=== PATIENT | female | born 1970 | race Caucasian/White ===

== ENCOUNTER → 2021-03-21 15:20 | Outpatient (CLI) | payer BC, SELFPAY ==
--- NOTE | ~2021-03-21 | MM_ITS ---
EXAMINATION: MM screening [facility] w joann HISTORY: Screening mammogram TECHNIQUE: Craniocaudal and mediolateral oblique 3-D tomosynthesis images were obtained and synthetic 2-D images were generated. CAD analysis was submitted and interpreted. COMPARISON: 02/16/2019, 02/14/2017 bilateral digital screening mammogram examinations BREAST PARENCHYMAL COMPOSITION: There are scattered areas of fibroglandular density. FINDINGS: Stable upper outer quadrant left intramammary lymph node. Circumscribed posterior upper out er quadrant approximately 4.6 mm opacity is likely a benign left axillary tail lymph node, also parti ally imaged on 08/12/2009. Bilateral occasional punctate benign-appearing microcalcifications. Normal There is no evidence of khalil spicious mass, calcification, or architectural distortion to suggest malignancy in either breast. The re has been no suspicious interval change. IMPRESSION: 1. No mammographic evidence of malignancy. 2. Recommend routine screening mammography in one year. BI-RADS Category 2: Benign finding(s). Reviewed, dictated and finalized at location A.
== END ==
PROVIDERS: Visit Provider Nurse Practitioner
DX: Z12.31 Encounter for screening mammogram for malignant neoplasm of breast (principal)
CPT/HCPCS: 77063; 77067

== ENCOUNTER → 2022-05-10 13:37 | Outpatient (CLI) | payer BC, SELFPAY ==
--- NOTE | ~2022-05-10 | MM_ITS ---
EXAMINATION: MM screening [facility] BI w joann HISTORY: Screening mammogram TECHNIQUE: Craniocaudal and mediolateral oblique 3-D tomosynthesis images were obtained and synthetic 2-D images were generated. CAD analysis was submitted and interpreted. COMPARISON: 03/21/2021, 02/16/2019, 02/14/2017 BREAST PARENCHYMAL COMPOSITION: There are scattered areas of fibroglandular density. FINDINGS: A chronic low density mass in the upper outer quadrant left breast is consistent with a richa ign finding. There is no suspicious mass, calcification, or architectural distortion to suggest malig hayder in either breast. There has been no suspicious interval change. IMPRESSION: 1. No mammographic evidence of malignancy. 2. Recommend routine screening mammography in one year. BI-RADS Category 2: Benign finding(s). Reviewed, dictated and finalized at location A.
== END ==
PROVIDERS: Visit Provider Nurse Practitioner
DX: Z12.31 Encounter for screening mammogram for malignant neoplasm of breast (principal)
CPT/HCPCS: 77063; 77067

== ENCOUNTER → 2023-04-12 10:13 | Outpatient (CLI) | payer BC, SELFPAY ==
--- NOTE | ~2023-04-12 | US_ITS ---
EXAMINATION: US transvaginal DATE: 04/12/2023 10:52 INDICATION: Other specified abnormal uterine and vaginal bleeding. TECHNIQUE: Multiple transvaginal sonographic images of the pelvis were obtained. COMPARISON: Ultrasound 06/29/2018 FINDINGS: The uterus measures 8.6 x 5.3 x 6.1 cm. There is no free fluid in the pelvis. The endometrial complex measures 3 mm in thickness. There is a 3.3 cm submucosal uterine fibroid. There is a 2.3 cm intramur al fibroid. The right ovary measures 2.3 x 1.4 x 2.0 cm. The left ovary is not visualized. IMPRESSION: 1. Uterine fibroids. 2. Intrauterine device not confidently visualized. The fibroids decrease sensitivity. Reviewed, dictated and finalized at location E. IMPRESSION: 1. Uterine fibroids. 2. Intrauterine device not confidently visualized. The fibroids decrease sensit ivity.
== END ==
PROVIDERS: PCP Nurse Practitioner; Visit Provider Obstetrics & Gynecology Gynecology
DX: N93.8 Other specified abnormal uterine and vaginal bleeding (principal); D25.9 Leiomyoma of uterus, unspecified
CPT/HCPCS: 76830

== ENCOUNTER → 2023-06-20 13:44 | Outpatient (CLI) | payer BC, SELFPAY ==
--- NOTE | ~2023-06-20 | MM_ITS ---
EXAMINATION: MM screening [facility] w joann HISTORY: Screening TECHNIQUE: Craniocaudal and mediolateral oblique 3-D tomosynthesis images were obtained and synthetic 2-D images were generated. CAD analysis was submitted and interpreted. COMPARISON: Comparison to multiple prior studies sequentially, with oldest reviewed study dated 02/11. BREAST PARENCHYMAL COMPOSITION: There are scattered areas of fibroglandular density. FINDINGS: There is no evidence of suspicious mass, calcification, or architectural distortion to sugg est malignancy in either breast. There has been no suspicious interval change. IMPRESSION: 1. No mammographic evidence of malignancy. 2. Recommend routine screening mammography in one year. BI-RADS Category 1: Negative Reviewed, dictated and finalized at location A.
== END ==
PROVIDERS: PCP Nurse Practitioner; Visit Provider Nurse Practitioner
DX: Z12.31 Encounter for screening mammogram for malignant neoplasm of breast (principal)
CPT/HCPCS: 77063; 77067

== ENCOUNTER 2024-09-02 12:18 | Outpatient (CLI) | payer BC, SELFPAY ==
--- NOTE | ~2024-09-02 | MM_ITS ---
EXAMINATION: MM screening [facility] w joann HISTORY: Screening TECHNIQUE: Craniocaudal and mediolateral oblique 3-D tomosynthesis images were obtained and synthetic 2-D images were generated. CAD analysis was submitted and interpreted. COMPARISON: Comparison to multiple prior studies sequentially, with oldest reviewed study dated 02/14. BREAST PARENCHYMAL COMPOSITION: Not dense: There are scattered areas of fibroglandular density. FINDINGS: There is no evidence of suspicious mass, calcification, or architectural distortion to sugg est malignancy in either breast. There has been no suspicious interval change. IMPRESSION: 1. No mammographic evidence of malignancy. 2. Recommend routine screening mammography in one year. BI-RADS Category 1: Negative Reviewed, dictated and finalized at location B. [employer]
== END 2024-09-02 12:19 | disposition home or self-care (01) ==
PROVIDERS: Visit Provider Nurse Practitioner
DX: Z12.31 Encounter for screening mammogram for malignant neoplasm of breast (principal)
CPT/HCPCS: 77063; 77067

== ENCOUNTER 2025-03-11 07:23 | Outpatient (CLI) | payer BC, SELFPAY ==
--- NOTE | ~2025-03-11 | DEXA_ITS ---
Bone Density Report Name: LUCIANA LEAL Age: 54 Sex: Female Ethnicity: White Date of : 1970 Indication: postmenopausal; screening for osteoporosis; Referring Provider: FREDDIE, ELIAS Study: Bone densitometry was performed. Exam Date: March 11, 2025 Accession number: [id number] Bone Density: Region BMD T-score Z-score Classification AP Spine(L1-L4) 1.224 1.6 2.8 Normal Femoral Neck (Left) 0.837 -0.1 1.0 Normal Total Hip (Left) 1.114 1.4 2.2 Normal Femoral Neck (Right) 0.880 0.3 1.4 Normal Total Hip (Right) 1.109 1.4 2.1 Normal Total Hip Mean 1.111 1.4 2.2 Normal World Health Organization criteria for BMD impression classify patients as: Normal (T-score at or above -1.0), Osteopenia (T-score between -1.0 and -2.5), or Osteoporosis (T-score at or below -2.5). 10-year Fracture Risk: FRAX not reported because: All T-scores for Spine Total, Hip Total, Femoral Neck at or above -1.0 Clinical Information Provided by Patient: Has used the following medications: HRT (i.e. estrogen/hormone therapy), Vitamin D, Calcium Patient maximum height was 60 No regular weight bearing exercise Drinks caffeinated beverages Onset of menses at age 11 Number of children 2 Impression: The patient has normal bone mass. Discussion: BONE DENSITY IS ABOVE THE MINIMUM DESIRABLE LEVEL AT ALL SKELETAL SITES TESTED. This patient?s bone mineral density is above the minimum desirable level (T-score -1.0 or better) at all sites measured. The patient should follow a healthful lifestyle (good nutrition with adequate calcium and vitamin D, and appropriate weight-bearing exercise). Follow-Up: Consider repeating this study in 5 years or sooner if there is some new clinical indication. Reported by: DEYSI on 03/11/2025 7:57:00 AM. Reviewed, dictated and finalized at location A.
--- OUTSIDE RECORDS SUMMARY | 2025-03-11 07:26 | XMS_ITS | Encounter Summary ---
Author Organization [facility] Healthcare Address [address] [place] [address] Care Team Providers Care Host/Hostess Name Role Phone Fiona Hodges MD Unavailable Collins Guardado MD Unavailable [phone] Rima Wiggins NP Primary Care Provider [phone] Encounter Details Date Type Department Care Team (Late st Contact Info) Description 01/14/2025 Results Follow-Up [facility] Primary Care at [address] [place] [address] Rima Wiggins NP [address] [place] [address] [address] [place] [address] CBC with auto differential, Comprehensive metabolic panel, Thyroid Function [place], Additional followed-up results: 2 Social History Tobacco Use Types Packs/Day Years Used Date Smoking Tobacco: Never Cigarettes Passive Smoke Exposure: Never Smokeless Tobacco: Never Alcohol Use Standard Drinks/Week Comments Not Currently 0 (1 standard drink = 0.6 oz pur e alcohol) AUDIT-C Answer Date Recorded Q1: How often do you have a drink containing alc ohol? 2-4 times a month 09/13/2024 Q2: How many drinks containi ng alcohol do you have on a typical day when you are drinking? 1 or 2 09/13/2024 Q3: How often do you have si x or more drinks on one occasion? 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 Gender Identity Female 12/27/2019 3:58 PM CDT Sexual Orientation Not on file documented as of this encounter Plan of Treatment Not on file documented as of this encounter Procedures Procedure Name Priority Date/Time Associated Diagnosis Comments BASIC METABOLIC PANEL Routine 01/31/2025 9:01 AM CDT Hypokalemia documented in this encounter Results * (ABNORMAL) Basic metabolic panel (01/31/2025 9:01 AM CDT) Glucose 100(H) 65 - 99 mg/dL [facility] Comment: Fasting reference interval For someone without known diabetes, a glucose value between 100 and 125 mg/dL is consistent with prediabetes and should be confirmed with a follow-up test. BUN 12 7 - 25 mg/dL [facility] Creatinine 1.05(H) 0.50 - 1.03 mg/dL [facility] eGFR 62 > OR = 60 mL/min/1.7 3m2 [facility] BUN/creat ratio 11 6 - 22 (calc) [facility] Sodium 139 135 - 146 mmol/L [facility] Potassium, pl 3.4(L) 3.5 - 5.3 mmol/L [facility] Chloride 99 98 - 110 mmol/L [facility] CO2 34(H) 20 - 32 mmol/L [facility] Calcium 9.6 8.6 - 10.4 mg/dL [facility] Blood 01/31/2025 9:01 AM CDT 01/31/2025 9:02 AM CDT Rima Wiggins NP LAB BLOOD ORDERABLES Final R esult [facility] [address] [id number] documented in this encounter Visit Diagnoses Diagnosis Hypokalemia- Primary Hypopotassemia documented in this encounter Care Teams Host/Hostess Relationship Specialty Start Date End Date Rima Wiggins NP [address] [place] [address] PCP - General Family Medicine 09/25/22 Fiona Hodges MD [address] [place], [place] [id number] Referring Physician Gynecology 12/14/19 Collins Guardado MD [address] [place], [place] [id number] Consulting Physician Gastroenterology 12/30/19 documented as of this encounter
--- OUTSIDE RECORDS SUMMARY | 2025-03-11 07:26 | XMS_ITS | Referral Summary ---
Author Organization [facility] Address [address] [place] [address] Care Team Providers Care Cellophaner Name Role Phone Fiona Hodges MD Unavailable [phone] Collins Guardado MD Unavailable [phone] Rima Wiggins NP Primary Care Provider [phone] Encounters Date Type Department Care Team Description 02/04/2025 1:00 PM CDT Office Visit [facility] Primary Care at [address] [phone] Rima Wiggins NP Class 1 obesity with serious comorbidity and body mass index (BMI) of 34.0 to 34.9 in adult, unspecified obesity type (Primary Dx); Hypokalemia; Elevated serum creatinine 01/14/2025 Results Follow-Up [facility] at [address] [phone] Rima Wiggins NP CBC with auto differential, Comprehensive metabolic panel, Thyroid Function [place], Additional followed-up results: 2 01/10/2025 Orders Only [facility] Primary Care at [address] [phone] Rima Wiggins NP Mixed hyperlipidemia (Primary Dx); Class 2 severe obesity with serious comorbidity and body mass index (BMI) of 36.0 to 36.9 in adult, unspecified obesity type (HCC); Prediabetes; Dizziness; Generalized anxiety disorder; Moderate episode of recurrent major depressive disorder (HCC); Screening for thyroid disorder 01/05/2025 Orders Only [facility] Primary Care at [address] [place] [phone] Rima Wiggins NP Class 2 severe obesity with serious comorbidity and body mass index (BMI) of 36.0 to 36.9 in adult, unspecified obesity type (HCC); Prediabetes 01/03/2025 Telephone [facility] at [address] [phone] Rima Wiggins NP Medical Question/Miscellaneous 12/13/2024 Orders Only [facility] at [address] [phone] Rima Wiggins NP Gastroesophageal reflux disease without esophagitis (Primary Dx) from Last 3 Months Allergies No known active allergies Medications fluticasone propionate (FLONASE) 50 mcg/actuation nasal spray Administer 2 sprays into each nostril daily 16 g 5 12/28/19 20 Active cholecalciferol (VITAMIN D-3) 2000 unit capsule 1 capsule (2,000 Units total) Active ascorbic acid (VITAMIN C) 1,000 mg tablet Take 1 tablet (1,000 mg total) by mouth daily Active levonorgestreL (MIRENA) IUD 1 each by intrauterine route once Active oxybutynin XL (DITROPAN-XL) 10 mg 24 hr tablet 12/09/19 22 Active Flowflex COVID-19 Ag Home Test kit 09/02/20 22 Active meclizine (ANTIVERT) 12.5 mg tabletIndications: Vertigo Take 1 tablet (12.5 mg total) by mouth 3 (three) times a day as needed for dizziness 30 tablet 04/05/20 24 Active traZODone (DESYREL) 50 mg tabletIndications: Moderate episode of recurrent major depressive disorder (HCC),Primary insomnia TAKE ONE-HALF (1/2) TO ONE TABLET AT BEDTIME NEEDED FOR INSOMNIA 90 tablet 3 05/17/20 24 Active cyclobenzaprine (FLEXERIL) 5 mg tabletIndications: Chronic bilateral low back pain with bilateral sciatica Take 1 tablet (5 mg total) by mouth 2 (two) times a day as needed for muscle spasms 60 tablet 06/25/20 24 Active desvenlafaxine ER (PRISTIQ) 100 mg 24 hr tabletIndications: Moderate episode of recurrent major depressive disorder (HCC) TAKE 1 TABLET DAILY 90 tablet 3 08/18/20 24 Active busPIRone (BUSPAR) 10 mg tabletIndications: Moderate episode of recurrent major depressive disorder (HCC) TAKE 1 TABLET THREE TIMES A DAY NEEDED FOR ANXIETY 180 tablet 3 10/01/19 25 Active rosuvastatin (CRESTOR) 40 mg tabletIndications: Mixed hyperlipidemia TAKE 1 TABLET DAILY 90 tablet 3 11/24/19 25 Active omeprazole (PriLOSEC) 40 mg capsuleIndications :Gastroesophageal reflux disease without esophagitis Take 1 capsule (40 mg total) by mouth daily 90 capsule 3 12/14/19 25 026 Active tirzepatide, weight loss, (Zepbound) 7.5 mg/0.5 mL pen injectorIndication s:Class 2 severe obesity with serious comorbidity and body mass index (BMI) of 36.0 to 36.9 in adult, unspecified obesity type (HCC),Prediabetes Inject 0.5 mL (7.5 mg total) under the skin every 7 days 6 mL 01/06/20 25 Active triamterene-hydroC HLOROthiazide 37.5-25 mg per tablet/capsuleIndi cations:Edema of all four extremities TAKE 1 CAPSULE DAILY 90 capsule 3 01/14/20 25 Active Active Problems Problem Noted Date Diagnosed Date Pulmonary hypertension 05/17/2024 Assessment & Plan (09/13/2024 2:48 PM SMOKE INSPECTOR): -chronic, stable -noted on echocardiogram from 05/03/2024 -Patient saw pulmonology, but they could not rule in or out pulmonary hypertension. Echocardiogram 05/03/2024: Normal left ventricular systolic function with no focal wall motion abnormalities. Normal left ventricular size. Normal left ventricular wall thickness. Normal left ventricular diastolic function. Ejection fraction is measured at 66 %. Trivial regurgitation of the mitral valve. Moderate pulmonary hypertension based on right ventricular systolic pressure. Estimated peak RVSP is 45-50 mmHg. Mild tricuspid regurgitation. Assessment & Plan (05/17/2024 2:18 PM CDT): -chronic, new -noted on echocardiogram from 05/03/2024 -discussed possible workup we can complete. Referral sent to pulmonology. Advised patient to let me know if she can not get in to pulmonology in the next few months, and we can order a chest CT scan and possibly a sleep study. -follow up in 4 months or sooner as needed Echocardiogram 05/03/2024: Normal left ventricular systolic function with no focal wall motion abnormalities. Normal left ventricular size. Normal left ventricular wall thickness. Normal left ventricular diastolic function. Ejection fraction is measured at 66 %. Trivial regurgitation of the mitral valve. Moderate pulmonary hypertension based on right ventricular systolic pressure. Estimated peak RVSP is 45-50 mmHg. Mild tricuspid regurgitation. Dizziness 04/13/2024 Assessment & Plan (09/13/2024 2:47 PM SMOKE INSPECTOR): -chronic, stable -possibly related to pulmonary hypertension -continue on meclizine 12.5 mg 3 times daily as needed for dizziness -advised patient to go to ED if dizziness worsens/does not improve or if she experiences chest pain, shortness of breath, difficulty speaking, facial drooping, or extremity weakness Assessment & Plan (05/17/2024 2:19 PM CDT): -chronic, improving -possibly related to pulmonary hypertension -continue on meclizine 12.5 mg 3 times daily as needed for dizziness -orthostatic blood pressures- negative for orthostatic hypotension -EKG- normal sinus rhythm -echocardiogram on 05/03/2024 showed moderate pulmonary hypertension -event monitor on 05/03/2024 showed rare PACs and PVCs, but was otherwise normal. -discussed with the patient potential workup we can do for the pulmonary hypertension. Referral sent to pulmonology. Advised patient to let me know if she can not get in to pulmonology in the next few months, and we can order a chest CT scan and possibly a sleep study. -advised patient to go to ED if dizziness worsens/does not improve or if she experiences chest pain, shortness of breath, difficulty speaking, facial drooping, or extremity weakness -follow up in 4 months or sooner as needed Assessment & Plan (04/13/2024 12:03 PM CDT): -chronic, not at/near goal -Discussed/ordered labs -Start on meclizine 12.5 mg 3 times daily as needed for dizziness -orthostatic blood pressures completed in office today- negative for orthostatic hypotension -EKG completed in office today- normal sinus rhythm -echocardiogram ordered today -event monitor ordered today -discussed with patient that Cardiology and/or neurology referral may be needed if this does not improve -advised patient to go to ED if dizziness worsens/does not improve or if she experiences chest pain, shortness of breath, difficulty speaking, facial drooping, or extremity weakness -follow up in 1 month or sooner as needed Prediabetes 03/26/2024 Assessment & Plan (09/13/2024 2:46 PM SMOKE INSPECTOR): -chronic, stable -Discussed/ordered labs -recommend healthy, low carb diet and increase exercise -Patient's insurance will start to cover weight loss medications in September -Advised patient to message me in September and I will send in [email or web address] for her: Demo pen used to show pt how to use the medication. Discussed the importance of site rotation, stay 2 fingerbreadths away from belly button. Discussed the importance of cutting meals in half starting after first dose. Discussed that this will slow gastric emptying which will make pt feel full longer and fill up faster. Discussed the one bite or one gulp too much scenario that can increase nausea/vomiting. Listen to your body. Reiterated that pt does not have family or personal history of medullary thyroid cancer or pancreatitis. Assessment & Plan (05/17/2024 2:15 PM CDT): -chronic, stable -Discussed/ordered labs -recommend healthy, low carb diet and increase exercise Assessment & Plan (04/13/2024 11:58 AM CDT): -chronic, new -Discussed/ordered labs -recommend healthy, low carb diet and increase exercise Memory loss 10/03/2023 Assessment & Plan (04/13/2024 11:59 AM CDT): -stable -recommend patient do daily memory games and memory puzzles -patient declines neurology referral at this time Assessment & Plan (10/03/2023 3:05 PM SMOKE INSPECTOR): -not improving -mini cog completed office today. Repeat in 6 months -recommend patient do daily memory games and memory puzzles Class 1 obesity with serious comorbidity and body mass index (BMI) of 34.0 to 34.9 in adult 09/25/2022 Assessment & Plan (02/04/2025 2:05 PM CDT): -chronic, improving, but not at goal goal BMI <30 Healthy, high-protein, lower carbohydrate, lower fat lifestyle and exercise for 150min/week recommended Recommend tracking everything you put in your mouth on an kenney like [employer] -Continue on Zepbound 7.5 mg weekly -Follow up in 3 months or sooner as needed Hand Measurements: A fist or cupped hand = 1 cup 1 cup = 1 -2 servings of fruit juice 1 oz. of cold cereal 2 oz. of cooked cereal, rice or pasta 8 oz. of milk or yogurt A thumb = 1 oz. of cheese Consuming low-fat cheese helps you meet the required servings from the milk, yogurt and cheese group. 1 oz. of low-fat cheese counts as 8 oz. of milk or yogurt. Handful = 1-2 oz. of snack food Thumb tip = 1 teaspoon Keep high-fat foods, such as peanut butter and mayonnaise, at a minimum. One teaspoon is equal to the end of your thumb, from the knuckle up. Three teaspoons equals 1 tablespoon. Palm = 3 oz. of meat Choose lean poultry, fish, shellfish and beef. One palm size portion equals 3 oz. for an adult and 1 -2 oz. for a child under 5. 1 tennis ball or a fist= 1/2 cup of fruit and vegetables Healthy diets include a variety of colorful fruits and vegetables every day. The secret to serving size is in your hand. Snacking can add up. Because hand sizes vary, compare your fist size to an actual measuring cup. Assessment & Plan (09/13/2024 2:46 PM SMOKE INSPECTOR): -chronic, not at/near goal goal BMI <30 Healthy, high-protein, lower carbohydrate, lower fat lifestyle and exercise for 150min/week recommended Recommend tracking everything you put in your mouth on an kenney like [employer] -Patient's insurance will start to cover weight loss medications in September -Advised patient to message me in September and I will send in [email or web address] for her: Demo pen used to show pt how to use the medication. Discussed the importance of site rotation, stay 2 fingerbreadths away from belly button. Discussed the importance of cutting meals in half starting after first dose. Discussed that this will slow gastric emptying which will make pt feel full longer and fill up faster. Discussed the one bite or one gulp too much scenario that can increase nausea/vomiting. Listen to your body. Reiterated that pt does not have family or personal history of medullary thyroid cancer or pancreatitis. Hand Measurements: A fist or cupped hand = 1 cup 1 cup = 1 -2 servings of fruit juice 1 oz. of cold cereal 2 oz. of cooked cereal, rice or pasta 8 oz. of milk or yogurt A thumb = 1 oz. of cheese Consuming low-fat cheese helps you meet the required servings from the milk, yogurt and cheese group. 1 oz. of low-fat cheese counts as 8 oz. of milk or yogurt. Handful = 1-2 oz. of snack food Thumb tip = 1 teaspoon Keep high-fat foods, such as peanut butter and mayonnaise, at a minimum. One teaspoon is equal to the end of your thumb, from the knuckle up. Three teaspoons equals 1 tablespoon. Palm = 3 oz. of meat Choose lean poultry, fish, shellfish and beef. One palm size portion equals 3 oz. for an adult and 1 -2 oz. for a child under 5. 1 tennis ball or a fist= 1/2 cup of fruit and vegetables Healthy diets include a variety of colorful fruits and vegetables every day. The secret to serving size is in your hand. Snacking can add up. Because hand sizes vary, compare your fist size to an actual measuring cup. Assessment & Plan (05/17/2024 2:15 PM CDT): -chronic, not at/near goal goal BMI <30 Healthy, high-protein, lower carbohydrate, lower fat lifestyle and exercise for 150min/week recommended Recommend tracking everything you put in your mouth on an kenney like [employer] Hand Measurements: A fist or cupped hand = 1 cup 1 cup = 1 -2 servings of fruit juice 1 oz. of cold cereal 2 oz. of cooked cereal, rice or pasta 8 oz. of milk or yogurt A thumb = 1 oz. of cheese Consuming low-fat cheese helps you meet the required servings from the milk, yogurt and cheese group. 1 oz. of low-fat cheese counts as 8 oz. of milk or yogurt. Handful = 1-2 oz. of snack food Thumb tip = 1 teaspoon Keep high-fat foods, such as peanut butter and mayonnaise, at a minimum. One teaspoon is equal to the end of your thumb, from the knuckle up. Three teaspoons equals 1 tablespoon. Palm = 3 oz. of meat Choose lean poultry, fish, shellfish and beef. One palm size portion equals 3 oz. for an adult and 1 -2 oz. for a child under 5. 1 tennis ball or a fist= 1/2 cup of fruit and vegetables Healthy diets include a variety of colorful fruits and vegetables every day. The secret to serving size is in your hand. Snacking can add up. Because hand sizes vary, compare your fist size to an actual measuring cup. Assessment & Plan (04/13/2024 12:00 PM CDT): -chronic, not at/near goal goal BMI <30 Healthy, high-protein, lower carbohydrate, lower fat lifestyle and exercise for 150min/week recommended Recommend tracking everything you put in your mouth on an kenney like [employer] Hand Measurements: A fist or cupped hand = 1 cup 1 cup = 1 -2 servings of fruit juice 1 oz. of cold cereal 2 oz. of cooked cereal, rice or pasta 8 oz. of milk or yogurt A thumb = 1 oz. of cheese Consuming low-fat cheese helps you meet the required servings from the milk, yogurt and cheese group. 1 oz. of low-fat cheese counts as 8 oz. of milk or yogurt. Handful = 1-2 oz. of snack food Thumb tip = 1 teaspoon Keep high-fat foods, such as peanut butter and mayonnaise, at a minimum. One teaspoon is equal to the end of your thumb, from the knuckle up. Three teaspoons equals 1 tablespoon. Palm = 3 oz. of meat Choose lean poultry, fish, shellfish and beef. One palm size portion equals 3 oz. for an adult and 1 -2 oz. for a child under 5. 1 tennis ball or a fist= 1/2 cup of fruit and vegetables Healthy diets include a variety of colorful fruits and vegetables every day. The secret to serving size is in your hand. Snacking can add up. Because hand sizes vary, compare your fist size to an actual measuring cup. Assessment & Plan (10/03/2023 3:03 PM SMOKE INSPECTOR): HPI: Condition is not at/near goal goal BMI <30 A&P: Healthy, high-protein, lower carbohydrate, lower fat lifestyle and exercise for 150min/week recommended Recommend tracking everything you put in your mouth on an kenney like [employer] Hand Measurements: A fist or cupped hand = 1 cup 1 cup = 1 -2 servings of fruit juice 1 oz. of cold cereal 2 oz. of cooked cereal, rice or pasta 8 oz. of milk or yogurt A thumb = 1 oz. of cheese Consuming low-fat cheese helps you meet the required servings from the milk, yogurt and cheese group. 1 oz. of low-fat cheese counts as 8 oz. of milk or yogurt. Handful = 1-2 oz. of snack food Thumb tip = 1 teaspoon Keep high-fat foods, such as peanut butter and mayonnaise, at a minimum. One teaspoon is equal to the end of your thumb, from the knuckle up. Three teaspoons equals 1 tablespoon. Palm = 3 oz. of meat Choose lean poultry, fish, shellfish and beef. One palm size portion equals 3 oz. for an adult and 1 -2 oz. for a child under 5. 1 tennis ball or a fist= 1/2 cup of fruit and vegetables Healthy diets include a variety of colorful fruits and vegetables every day. The secret to serving size is in your hand. Snacking can add up. Because hand sizes vary, compare your fist size to an actual measuring cup. Assessment & Plan (03/27/2023 1:48 PM CDT): HPI: Condition is not at/near goal goal BMI <25 A&P: Healthy, high-protein, lower carbohydrate, lower fat lifestyle and exercise for 150min/week recommended Recommend tracking everything you put in your mouth on an kenney like [employer] -Advised patient to call her insurance company and see if they cover Wegovy, phentermine, or contrave. Advised patient she may also look into [facility] weight loss clinic for semaglutide injections. -Patient denies personal/family history of pancreatitis or medullary thyroid cancer Hand Measurements: A fist or cupped hand = 1 cup 1 cup = 1 -2 servings of fruit juice 1 oz. of cold cereal 2 oz. of cooked cereal, rice or pasta 8 oz. of milk or yogurt A thumb = 1 oz. of cheese Consuming low-fat cheese helps you meet the required servings from the milk, yogurt and cheese group. 1 oz. of low-fat cheese counts as 8 oz. of milk or yogurt. Handful = 1-2 oz. of snack food Thumb tip = 1 teaspoon Keep high-fat foods, such as peanut butter and mayonnaise, at a minimum. One teaspoon is equal to the end of your thumb, from the knuckle up. Three teaspoons equals 1 tablespoon. Palm = 3 oz. of meat Choose lean poultry, fish, shellfish and beef. One palm size portion equals 3 oz. for an adult and 1 -2 oz. for a child under 5. 1 tennis ball or a fist= 1/2 cup of fruit and vegetables Healthy diets include a variety of colorful fruits and vegetables every day. The secret to serving size is in your hand. Snacking can add up. Because hand sizes vary, compare your fist size to an actual measuring cup. Assessment & Plan (09/25/2022 3:15 PM SMOKE INSPECTOR): HPI: Condition is stable goal BMI <30 A&P: Healthy, high-protein, lower carbohydrate, lower fat lifestyle and exercise for 150min/week recommended Recommend tracking everything you put in your mouth on an kenney like [employer] Hand Measurements: A fist or cupped hand = 1 cup 1 cup = 1 -2 servings of fruit juice 1 oz. of cold cereal 2 oz. of cooked cereal, rice or pasta 8 oz. of milk or yogurt A thumb = 1 oz. of cheese Consuming low-fat cheese helps you meet the required servings from the milk, yogurt and cheese group. 1 oz. of low-fat cheese counts as 8 oz. of milk or yogurt. Handful = 1-2 oz. of snack food Thumb tip = 1 teaspoon Keep high-fat foods, such as peanut butter and mayonnaise, at a minimum. One teaspoon is equal to the end of your thumb, from the knuckle up. Three teaspoons equals 1 tablespoon. Palm = 3 oz. of meat Choose lean poultry, fish, shellfish and beef. One palm size portion equals 3 oz. for an adult and 1 -2 oz. for a child under 5. 1 tennis ball or a fist= 1/2 cup of fruit and vegetables Healthy diets include a variety of colorful fruits and vegetables every day. The secret to serving size is in your hand. Snacking can add up. Because hand sizes vary, compare your fist size to an actual measuring cup. Vitamin D deficiency 01/24/2021 Assessment & Plan (09/13/2024 2:45 PM SMOKE INSPECTOR): -chronic, stable -discussed/ordered lab work -continue on vitamin D3 2000 units daily Assessment & Plan (05/17/2024 2:15 PM CDT): -chronic, stable -discussed/ordered lab work -continue on vitamin D3 2000 units daily Assessment & Plan (04/13/2024 11:58 AM CDT): -chronic, stable -discussed/ordered lab work -continue on vitamin D3 2000 units daily Assessment & Plan (10/03/2023 3:04 PM SMOKE INSPECTOR): -chronic, stable -discussed/ordered lab work -continue on vitamin D3 2000 units daily Assessment & Plan (03/27/2023 1:48 PM CDT): -chronic, stable -continue on vitamin D3 2000 units daily -vitamin-D level ordered today Assessment & Plan (09/25/2022 7:33 AM SMOKE INSPECTOR): HPI: Condition is stable A&P: Discussed/ordered labs, encouraged healthy, low carbohydrate lifestyle and at least 150min/week of exercise, continue on vitamin D3 2000 units daily Assessment & Plan (02/05/2022 8:17 AM CDT): HPI: Condition is at goal A&P: Discussed/ordered labs, encouraged healthy, low carbohydrate lifestyle and at least 150min/week of exercise, continue on Vitamin D3 5753-1380 units daily Assessment & Plan (08/08/2021 1:47 PM SMOKE INSPECTOR): HPI: Condition is at goal A&P: Discussed/ordered labs, encouraged healthy, low carbohydrate lifestyle and at least 150min/week of exercise, continue on Vitamin-D3 7648-2207 units daily Assessment & Plan (01/24/2021 4:05 PM CDT): HPI: Condition is improving, but not at goal of 60-70 A&P: Discussed/ordered labs, encouraged healthy, low carbohydrate lifestyle and at least 150min/week of exercise, increase vit d3 to 9053-1922 units daily Moderate episode of recurrent major depressive d isorder 03/01/2020 Assessment & Plan (09/13/2024 2:45 PM SMOKE INSPECTOR): -chronic, not at goal -patient does not want to change her medications at this time -continue on desvenlafaxine ER 100 mg daily, buspirone 10 mg 3 times daily as needed, and trazodone 50 mg 1/2-1 tablet at bedtime as needed for insomnia -follow up if not improving Patient reiterated no suicidal thoughts at this time; take medication as directed; contact 911 and go to the ER if becomes suicidal; discussed side effects of medication with patient; encouraged healthy diet and exericise; encouraged patient to see a counselor Assessment & Plan (05/17/2024 2:15 PM CDT): -chronic, stable -continue on desvenlafaxine ER 100 mg daily, buspirone 10 mg 3 times daily as needed, and trazodone 50 mg 1/2-1 tablet at bedtime as needed for insomnia Patient reiterated no suicidal thoughts at this time; take medication as directed; contact 911 and go to the ER if becomes suicidal; discussed side effects of medication with patient; encouraged healthy diet and exericise; encouraged patient to see a counselor Assessment & Plan (04/13/2024 11:59 AM CDT): -chronic, stable -continue on desvenlafaxine ER 100 mg daily, buspirone 10 mg 3 times daily as needed, and trazodone 50 mg 1/2-1 tablet at bedtime as needed for insomnia Patient reiterated no suicidal thoughts at this time; take medication as directed; contact 911 and go to the ER if becomes suicidal; discussed side effects of medication with patient; encouraged healthy diet and exericise; encouraged patient to see a counselor Assessment & Plan (10/03/2023 3:04 PM SMOKE INSPECTOR): Patient reiterated no suicidal thoughts at this time; take medication as directed; contact 911 and go to the ER if becomes suicidal; discussed side effects of medication with patient; encouraged healthy diet and exericise; encouraged patient to see a counselor -chronic, stable -continue on desvenlafaxine ER 100 mg daily, buspirone 10 mg 3 times daily as needed, and trazodone 50 mg 1/2-1 tablet at bedtime as needed for insomnia Assessment & Plan (03/27/2023 1:48 PM CDT): Patient reiterated no suicidal thoughts at this time; take medication as directed; contact 911 and go to the ER if becomes suicidal; discussed side effects of medication with patient; encouraged healthy diet and exericise; encouraged patient to see a counselor -chronic, stable -continue on desvenlafaxine ER 100 mg daily, buspirone 10 mg 3 times daily as needed, and trazodone 50 mg 1/2-1 tablet at bedtime as needed for insomnia Assessment & Plan (09/25/2022 3:18 PM SMOKE INSPECTOR): Patient reiterated no suicidal thoughts at this time; take medication as directed; contact 911 and go to the ER if becomes suicidal; discussed side effects of medication with patient; encouraged healthy diet and exericise; encouraged patient to see a counselor HPI: Condition is improving A&P: Discussed/ordered labs, encouraged healthy, low carbohydrate lifestyle and at least 150min/week of exercise, continue on does venlafaxine ER 100 mg daily and buspirone 10 mg 3 times daily as needed and trazodone 50 mg 1/2-1 tablet at bedtime as needed for insomnia Assessment & Plan (06/25/2022 1:23 PM CDT): Patient reiterated no suicidal thoughts at this time; take medication as directed; contact 911 and go to the ER if becomes suicidal; discussed side effects of medication with patient; encouraged healthy diet and exericise; encouraged patient to see a counselor HPI: Condition is stable A&P: Discussed/ordered labs, encouraged healthy, low carbohydrate lifestyle and at least 150min/week of exercise, continue on does venlafaxine 100 mg daily, decrease melatonin from 10 mg nightly to 3mg nightly, at last office visit we trial patient on buspirone twice daily. She feels she is doing better on this dosing. We will add in trazodone 50mg 1/2-1 tablet at bedtime as needed for insomnia. Assessment & Plan (05/08/2022 1:38 PM CDT): Patient reiterated no suicidal thoughts at this time; take medication as directed; contact 911 and go to the ER if becomes suicidal; discussed side effects of medication with patient; encouraged healthy diet and exericise; encouraged patient to see a counselor HPI: Condition is not at/near goal A&P: Discussed/ordered labs, encouraged healthy, low carbohydrate lifestyle and at least 150min/week of exercise, pt on pristiq 100mg daily. Pt no longer using hydroxyzine. Also using melatonin 10mg nightly Stay on your pristiq 100mg daily Trial on buspirone 10mg twice daily. Take it in the am and with dinner. May remain on melatonin 10mg nightly Assessment & Plan (02/05/2022 3:38 PM CDT): Patient reiterated no suicidal thoughts at this time; take medication as directed; contact 911 and go to the ER if becomes suicidal; discussed side effects of medication with patient; encouraged healthy diet and exericise; encouraged patient to see a counselor HPI: Condition is stable A&P: Discussed/ordered labs, encouraged healthy, low carbohydrate lifestyle and at least 150min/week of exercise, continue on Pristiq 100 mg daily, melatonin 10 mg nightly No longer using hydroxyzine Assessment & Plan (08/08/2021 1:51 PM SMOKE INSPECTOR): Patient reiterated no suicidal thoughts at this time; take medication as directed; contact 911 and go to the ER if becomes suicidal; discussed side effects of medication with patient; encouraged healthy diet and exericise; encouraged patient to see a counselor HPI: Condition is stable A&P: Discussed/ordered labs, encouraged healthy, low carbohydrate lifestyle and at least 150min/week of exercise, continue on pristiq 100mg daily, hydroxyzine 10mg 1/2-1 tablet at bedtime only as needed-she cant remember the last time she needed it. She is taking melatonin 10mg nightly. Assessment & Plan (01/24/2021 4:19 PM CDT): Patient reiterated no suicidal thoughts at this time; take medication as directed; contact 911 and go to the ER if becomes suicidal; discussed side effects of medication with patient; encouraged healthy diet and exericise; encouraged patient to see a counselor HPI: Condition is stable A&P: Discussed/ordered labs, encouraged healthy, low carbohydrate lifestyle and at least 150min/week of exercise, continue on pristiq 100mg daily, hydroxyzine 10mg 1/2-1 tablet at bedtime only as needed-she can't remember the last time she took it. She is also taking melatonin 10mg nightly which is helping. At last office visit referred her to see Dr. Luna (sleep med) and she is having workup done by her. She was also refer for cognitive behavioral therapy. She did not get that done. She is doing well with sleeping and does not feel she needs f/u with Dr. Luna at this time. Assessment & Plan (10/24/2020 8:10 AM SMOKE INSPECTOR): Patient reiterated no suicidal thoughts at this time; take medication as directed; contact 911 and go to the ER if becomes suicidal; discussed side effects of medication with patient; encouraged healthy diet and exericise; encouraged patient to see a counselor HPI: Condition is improving, but not at goal , with covid and the recent presidency issues, that does not help. A&P: Discussed/ordered labs, encouraged healthy, low carbohydrate lifestyle and at least 150min/week of exercise, at last office visit we started her on Pristiq 50 mg daily as a controller medication. We also gave hydroxyzine 25 mg to use 1/2 to 1 tablet at bedtime to help her sleep We will increase the pristiq to 100mg daily. Pt stated she was feeling too tired the next day on days she tooke the hydroxyzine 25mg even at 1/2 tablet. We will decrease this to hydroxyzine 10mg 1/2-1tablet at bedtime. We will also refer to Dr. Luna (sleep med) Assessment & Plan (03/01/2020 3:33 PM CDT): Condition is worsening encouraged healthy, low carbohydrate lifestyle and at least 150min/week of exercise, at last visit we discontinued effexor due to side effects. She stated she Was shaking constantly and was unable to shut her brain off making it difficult to sleep at night. We started patient on lexapro 20mg daily and buspirone as needed for anxiety, rescue Was told to consider the buspirone as a rescue only medication. If needing it more than 2 x day, please contact office. At last visit she stopped both of them. She stopped it after 1 mo because she felt like a zombie. She was tired all the time and felt very dizzy. Before stopping she was only taking it at bedtime but she didn't feel that it helped. She stated she was sleeping better without it. She did not take the buspirone diurng the day for anxiety. She did take the lexapro daily. At first she was feeling better on no medication. Her anxiety levels have now increased along with depression She is also working from home at this time. Sleeping worse now than she previously was. Pt is not currently seeing a counselor. Patient reiterated no suicidal thoughts at this time; take medication as directed; contact 911 and go to the ER if becomes suicidal; discussed side effects of medication with patient; encouraged healthy diet and exericise; encouraged patient to see a counselor She states she is not doing ok on her own without medication. She has been on lexapro, venlafaxine in the past also. Trial on pristiq 50mg daily as a controller medication. We will also give hydroxyzine 25mg 1/2-1 tablet at bedtime to help sleep. Drink tons of water Generalized anxiety disorder 12/14/2019 Assessment & Plan (09/13/2024 2:45 PM SMOKE INSPECTOR): -chronic, not at goal -patient does not want to change her medications at this time -continue on desvenlafaxine ER 100 mg daily, buspirone 10 mg 3 times daily as needed, and trazodone 50 mg 1/2-1 tablet at bedtime as needed for insomnia -follow up if not improving Patient reiterated no suicidal thoughts at this time; take medication as directed; contact 911 and go to the ER if becomes suicidal; discussed side effects of medication with patient; encouraged healthy diet and exericise; encouraged patient to see a counselor Assessment & Plan (05/17/2024 2:15 PM CDT): -chronic, not at goal- patient's father is in the hospital -patient does not want to change her medications at this time -continue on desvenlafaxine ER 100 mg daily, buspirone 10 mg 3 times daily as needed, and trazodone 50 mg 1/2-1 tablet at bedtime as needed for insomnia -follow up in 4 months or sooner as needed Patient reiterated no suicidal thoughts at this time; take medication as directed; contact 911 and go to the ER if becomes suicidal; discussed side effects of medication with patient; encouraged healthy diet and exericise; encouraged patient to see a counselor Assessment & Plan (04/13/2024 12:00 PM CDT): -chronic, stable -continue on desvenlafaxine ER 100 mg daily, buspirone 10 mg 3 times daily as needed, and trazodone 50 mg 1/2-1 tablet at bedtime as needed for insomnia Patient reiterated no suicidal thoughts at this time; take medication as directed; contact 911 and go to the ER if becomes suicidal; discussed side effects of medication with patient; encouraged healthy diet and exericise; encouraged patient to see a counselor Assessment & Plan (10/03/2023 1:52 PM SMOKE INSPECTOR): Patient reiterated no suicidal thoughts at this time; take medication as directed; contact 911 and go to the ER if becomes suicidal; discussed side effects of medication with patient; encouraged healthy diet and exericise; encouraged patient to see a counselor -chronic, stable -continue on desvenlafaxine ER 100 mg daily, buspirone 10 mg 3 times daily as needed, and trazodone 50 mg 1/2-1 tablet at bedtime as needed for insomnia Assessment & Plan (03/26/2023 11:29 AM CDT): Patient reiterated no suicidal thoughts at this time; take medication as directed; contact 911 and go to the ER if becomes suicidal; discussed side effects of medication with patient; encouraged healthy diet and exericise; encouraged patient to see a counselor -chronic, stable -continue on desvenlafaxine ER 100 mg daily, buspirone 10 mg 3 times daily as needed, and trazodone 50 mg 1/2-1 tablet at bedtime as needed for insomnia Assessment & Plan (09/25/2022 3:29 PM SMOKE INSPECTOR): Patient reiterated no suicidal thoughts at this time; take medication as directed; contact 911 and go to the ER if becomes suicidal; discussed side effects of medication with patient; encouraged healthy diet and exericise; encouraged patient to see a counselor HPI: Condition is improving A&P: Discussed/ordered labs, encouraged healthy, low carbohydrate lifestyle and at least 150min/week of exercise, continue on does venlafaxine ER 100 mg daily and buspirone 10 mg 3 times daily as needed and trazodone 50 mg 1/2-1 tablet at bedtime as needed for insomnia Assessment & Plan (06/25/2022 1:26 PM CDT): Patient reiterated no suicidal thoughts at this time; take medication as directed; contact 911 and go to the ER if becomes suicidal; discussed side effects of medication with patient; encouraged healthy diet and exericise; encouraged patient to see a counselor HPI: Condition is stable A&P: Discussed/ordered labs, encouraged healthy, low carbohydrate lifestyle and at least 150min/week of exercise, continue on does venlafaxine 100 mg daily, decrease melatonin from 10 mg nightly to 3mg nightly, at last office visit we trial patient on buspirone twice daily. She feels she is doing better on this dosing. We will add in trazodone 50mg 1/2-1 tablet at bedtime as needed for insomnia. Assessment & Plan (05/08/2022 1:38 PM CDT): Patient reiterated no suicidal thoughts at this time; take medication as directed; contact 911 and go to the ER if becomes suicidal; discussed side effects of medication with patient; encouraged healthy diet and exericise; encouraged patient to see a counselor HPI: Condition is not at/near goal A&P: Discussed/ordered labs, encouraged healthy, low carbohydrate lifestyle and at least 150min/week of exercise, pt on pristiq 100mg daily. Pt no longer using hydroxyzine. Also using melatonin 10mg nightly Stay on your pristiq 100mg daily Trial on buspirone 10mg twice daily. Take it in the am and with dinner. May remain on melatonin 10mg nightly Assessment & Plan (02/05/2022 3:40 PM CDT): Patient reiterated no suicidal thoughts at this time; take medication as directed; contact 911 and go to the ER if becomes suicidal; discussed side effects of medication with patient; encouraged healthy diet and exericise; encouraged patient to see a counselor HPI: Condition is stable A&P: Discussed/ordered labs, encouraged healthy, low carbohydrate lifestyle and at least 150min/week of exercise, continue on Pristiq 100 mg daily, melatonin 10 mg nightly No longer using hydroxyzine Assessment & Plan (08/08/2021 1:54 PM SMOKE INSPECTOR): Patient reiterated no suicidal thoughts at this time; take medication as directed; contact 911 and go to the ER if becomes suicidal; discussed side effects of medication with patient; encouraged healthy diet and exericise; encouraged patient to see a counselor HPI: Condition is stable A&P: Discussed/ordered labs, encouraged healthy, low carbohydrate lifestyle and at least 150min/week of exercise, continue on pristiq 100mg daily, hydroxyzine 10mg 1/2-1 tablet at bedtime only as needed-she cant remember the last time she needed it. She is taking melatonin 10mg nightly. Assessment & Plan (01/24/2021 4:20 PM CDT): Patient reiterated no suicidal thoughts at this time; take medication as directed; contact 911 and go to the ER if becomes suicidal; discussed side effects of medication with patient; encouraged healthy diet and exericise; encouraged patient to see a counselor HPI: Condition is stable A&P: Discussed/ordered labs, encouraged healthy, low carbohydrate lifestyle and at least 150min/week of exercise, continue on pristiq 100mg daily, hydroxyzine 10mg 1/2-1 tablet at bedtime only as needed-she can't remember the last time she took it. She is also taking melatonin 10mg nightly which is helping. At last office visit referred her to see Dr. Luna (sleep med) and she is having workup done by her. She was also refer for cognitive behavioral therapy. She did not get that done. She is doing well with sleeping and does not feel she needs f/u with Dr. Luna at this time. Assessment & Plan (10/24/2020 8:11 AM SMOKE INSPECTOR): Patient reiterated no suicidal thoughts at this time; take medication as directed; contact 911 and go to the ER if becomes suicidal; discussed side effects of medication with patient; encouraged healthy diet and exericise; encouraged patient to see a counselor HPI: Condition is improving, but not at goal , with covid and the recent presidency issues, that does not help. A&P: Discussed/ordered labs, encouraged healthy, low carbohydrate lifestyle and at least 150min/week of exercise, at last office visit we started her on Pristiq 50 mg daily as a controller medication. We also gave hydroxyzine 25 mg to use 1/2 to 1 tablet at bedtime to help her sleep We will increase the pristiq to 100mg daily. Pt stated she was feeling too tired the next day on days she tooke the hydroxyzine 25mg even at 1/2 tablet. We will decrease this to hydroxyzine 10mg 1/2-1tablet at bedtime. We will also refer to Dr. Luna (sleep med) Assessment & Plan (03/01/2020 3:33 PM CDT): Condition is worsening encouraged healthy, low carbohydrate lifestyle and at least 150min/week of exercise, at last visit we discontinued effexor due to side effects. She stated she Was shaking constantly and was unable to shut her brain off making it difficult to sleep at night. We started patient on lexapro 20mg daily and buspirone as needed for anxiety, rescue Was told to consider the buspirone as a rescue only medication. If needing it more than 2 x day, please contact office. At last visit she stopped both of them. She stopped it after 1 mo because she felt like a zombie. She was tired all the time and felt very dizzy. Before stopping she was only taking it at bedtime but she didn't feel that it helped. She stated she was sleeping better without it. She did not take the buspirone diurng the day for anxiety. She did take the lexapro daily. At first she was feeling better on no medication. Her anxiety levels have now increased along with depression She is also working from home at this time. Sleeping worse now than she previously was. Pt is not currently seeing a counselor. Patient reiterated no suicidal thoughts at this time; take medication as directed; contact 911 and go to the ER if becomes suicidal; discussed side effects of medication with patient; encouraged healthy diet and exericise; encouraged patient to see a counselor She states she is not doing ok on her own without medication. She has been on lexapro, venlafaxine in the past also. Trial on pristiq 50mg daily as a controller medication. We will also give hydroxyzine 25mg 1/2-1 tablet at bedtime to help sleep. Drink tons of water Assessment & Plan (01/26/2020 3:50 PM CDT): Condition is stable encouraged healthy, low carbohydrate lifestyle and at least 150min/week of exercise, at last visit we discontinued effexor due to side effects. She stated she Was shaking constantly and was unable to shut her brain off making it difficult to sleep at night. We started patient on lexapro 20mg daily and buspirone as needed for anxiety, rescue Was told to consider the buspirone as a rescue only medication. If needing it more than 2 x day, please contact office. Pt states she stopped both of them. She stopped it after 1 mo because she felt like a zombie. She was tired all the time and felt very dizzy. Before stopping she was only taking it at bedtime but she didn't feel that it helped. She states she is sleeping better without it. She did not take the buspirone diurng the day for anxiety. She did take the lexapro daily. She says she is feeling better on no medication. Her anxiety levels feel fine right now. She is also working from home at this time. Sleeping better now than she previously was. Pt is not currently seeing a counselor. Patient reiterated no suicidal thoughts at this time; take medication as directed; contact 911 and go to the ER if becomes suicidal; discussed side effects of medication with patient; encouraged healthy diet and exericise; encouraged patient to see a counselor Assessment & Plan (12/14/2019 6:24 PM CDT): Discussed/ordered labs, Condition is stable encouraged healthy, low carbohydrate lifestyle and at least 150min/week of exercise, patient is currently on effexor and does not like the side effects. She states she shakes constantly and is unable to shut her brain off making it difficult to sleep at night. Start patient on lexapro 20mg daily Start patient on buspirone as needed for anxiety, rescue Please consider the buspirone as a rescue only medication. If needing it more than 2 x day, please contact office. Patient reiterated no suicidal thoughts at this time; take medication as directed; contact 911 and go to the ER if becomes suicidal; discussed side effects of medication with patient; encouraged healthy diet and exericise; encouraged patient to see a counselor Mixed hyperlipidemia 12/14/2019 Assessment & Plan (09/13/2024 2:45 PM SMOKE INSPECTOR): -chronic, stable -Discussed/ordered labs -continue on rosuvastatin 40 mg nightly Assessment & Plan (05/17/2024 2:15 PM CDT): -chronic, stable -Discussed/ordered labs -continue on rosuvastatin 40 mg nightly Assessment & Plan (04/13/2024 11:59 AM CDT): -chronic, stable -Discussed/ordered labs -continue on rosuvastatin 40 mg nightly Assessment & Plan (10/03/2023 1:51 PM SMOKE INSPECTOR): -chronic, not at/near goal -Discussed/ordered labs -increase to rosuvastatin 40 mg nightly Assessment & Plan (03/27/2023 1:48 PM CDT): -chronic, stable -continue on rosuvastatin 20 mg daily -lipid panel ordered today Assessment & Plan (09/25/2022 7:34 AM SMOKE INSPECTOR): HPI: Condition is stable A&P: Discussed/ordered labs, encouraged healthy, low carbohydrate lifestyle and at least 150min/week of exercise, continue on rosuvastatin 20 mg daily Assessment & Plan (02/05/2022 8:20 AM CDT): HPI: Condition is stable A&P: Discussed/ordered labs, encouraged healthy, low carbohydrate lifestyle and at least 150min/week of exercise, continue on Rosuvastatin 20 mg daily Assessment & Plan (08/08/2021 1:54 PM SMOKE INSPECTOR): HPI: Condition is stable A&P: Discussed/ordered labs, encouraged healthy, low carbohydrate lifestyle and at least 150min/week of exercise, continue on Rosuvastatin 20 mg daily Assessment & Plan (01/24/2021 4:04 PM CDT): HPI: Condition is at goal A&P: Discussed/ordered labs, encouraged healthy, low carbohydrate lifestyle and at least 150min/week of exercise, continue on rosuvastatin 20mg daily Assessment & Plan (12/14/2019 3:12 PM CDT): Discussed/ordered labs, Condition is unknown, no data to review at this time to make an evaluation encouraged healthy, low carbohydrate lifestyle and at least 150min/week of exercise, continue on crestor 20 mg daily. Insomnia 12/14/2019 Assessment & Plan (05/17/2024 2:15 PM CDT): -chronic, stable -Discussed/ordered labs -continue on trazodone 50 mg 1/2-1 tablet at bedtime as needed for insomnia Assessment & Plan (04/13/2024 11:59 AM CDT): -chronic, stable -Discussed/ordered labs -continue on trazodone 50 mg 1/2-1 tablet at bedtime as needed for insomnia Assessment & Plan (10/03/2023 3:05 PM SMOKE INSPECTOR): Patient reiterated no suicidal thoughts at this time; take medication as directed; contact 911 and go to the ER if becomes suicidal; discussed side effects of medication with patient; encouraged healthy diet and exericise; encouraged patient to see a counselor -chronic, stable -continue on desvenlafaxine ER 100 mg daily, buspirone 10 mg 3 times daily as needed, and trazodone 50 mg 1/2-1 tablet at bedtime as needed for insomnia Assessment & Plan (03/27/2023 1:48 PM CDT): Patient reiterated no suicidal thoughts at this time; take medication as directed; contact 911 and go to the ER if becomes suicidal; discussed side effects of medication with patient; encouraged healthy diet and exericise; encouraged patient to see a counselor -chronic, stable -continue on desvenlafaxine ER 100 mg daily, buspirone 10 mg 3 times daily as needed, and trazodone 50 mg 1/2-1 tablet at bedtime as needed for insomnia Assessment & Plan (09/25/2022 3:29 PM SMOKE INSPECTOR): Patient reiterated no suicidal thoughts at this time; take medication as directed; contact 911 and go to the ER if becomes suicidal; discussed side effects of medication with patient; encouraged healthy diet and exericise; encouraged patient to see a counselor HPI: Condition is improving A&P: Discussed/ordered labs, encouraged healthy, low carbohydrate lifestyle and at least 150min/week of exercise, continue on does venlafaxine ER 100 mg daily and buspirone 10 mg 3 times daily as needed and trazodone 50 mg 1/2-1 tablet at bedtime as needed for insomnia Assessment & Plan (06/25/2022 1:23 PM CDT): Patient reiterated no suicidal thoughts at this time; take medication as directed; contact 911 and go to the ER if becomes suicidal; discussed side effects of medication with patient; encouraged healthy diet and exericise; encouraged patient to see a counselor HPI: Condition is Not at goal A&P: Discussed/ordered labs, encouraged healthy, low carbohydrate lifestyle and at least 150min/week of exercise, continue on does venlafaxine 100 mg daily, decrease melatonin from 10 mg nightly to 3mg nightly, at last office visit we trial patient on buspirone twice daily. She feels she is doing better on this dosing. We will add in trazodone 50mg 1/2-1 tablet at bedtime as needed for insomnia. Assessment & Plan (02/05/2022 3:39 PM CDT): HPI: Condition is stable A&P: Discussed/ordered labs, encouraged healthy, low carbohydrate lifestyle and at least 150min/week of exercise, continue on Pristiq 100 mg daily, melatonin 10 mg nightly No longer using hydroxyzine Assessment & Plan (08/08/2021 1:53 PM SMOKE INSPECTOR): Patient reiterated no suicidal thoughts at this time; take medication as directed; contact 911 and go to the ER if becomes suicidal; discussed side effects of medication with patient; encouraged healthy diet and exericise; encouraged patient to see a counselor HPI: Condition is stable A&P: Discussed/ordered labs, encouraged healthy, low carbohydrate lifestyle and at least 150min/week of exercise, continue on pristiq 100mg daily, hydroxyzine 10mg 1/2-1 tablet at bedtime only as needed-she cant remember the last time she needed it. She is taking melatonin 10mg nightly. Assessment & Plan (01/24/2021 4:19 PM CDT): Patient reiterated no suicidal thoughts at this time; take medication as directed; contact 911 and go to the ER if becomes suicidal; discussed side effects of medication with patient; encouraged healthy diet and exericise; encouraged patient to see a counselor HPI: Condition is stable A&P: Discussed/ordered labs, encouraged healthy, low carbohydrate lifestyle and at least 150min/week of exercise, continue on pristiq 100mg daily, hydroxyzine 10mg 1/2-1 tablet at bedtime only as needed-she can't remember the last time she took it. She is also taking melatonin 10mg nightly which is helping. At last office visit referred her to see Dr. Luna (sleep med) and she is having workup done by her. She was also refer for cognitive behavioral therapy. She did not get that done. She is doing well with sleeping and does not feel she needs f/u with Dr. Luna at this time. Assessment & Plan (10/24/2020 8:11 AM SMOKE INSPECTOR): Patient reiterated no suicidal thoughts at this time; take medication as directed; contact 911 and go to the ER if becomes suicidal; discussed side effects of medication with patient; encouraged healthy diet and exericise; encouraged patient to see a counselor HPI: Condition is improving, but not at goal , with covid and the recent presidency issues, that does not help. A&P: Discussed/ordered labs, encouraged healthy, low carbohydrate lifestyle and at least 150min/week of exercise, at last office visit we started her on Pristiq 50 mg daily as a controller medication. We also gave hydroxyzine 25 mg to use 1/2 to 1 tablet at bedtime to help her sleep We will increase the pristiq to 100mg daily. Pt stated she was feeling too tired the next day on days she tooke the hydroxyzine 25mg even at 1/2 tablet. We will decrease this to hydroxyzine 10mg 1/2-1tablet at bedtime. We will also refer to Dr. Luna (sleep med) Assessment & Plan (01/26/2020 3:51 PM CDT): Condition is stable encouraged healthy, low carbohydrate lifestyle and at least 150min/week of exercise, at last visit we discontinued effexor due to side effects. She stated she Was shaking constantly and was unable to shut her brain off making it difficult to sleep at night. We started patient on lexapro 20mg daily and buspirone as needed for anxiety, rescue Was told to consider the buspirone as a rescue only medication. If needing it more than 2 x day, please contact office. Pt states she stopped both of them. She stopped it after 1 mo because she felt like a zombie. She was tired all the time and felt very dizzy. Before stopping she was only taking it at bedtime but she didn't feel that it helped. She states she is sleeping better without it. She did not take the buspirone diurng the day for anxiety. She did take the lexapro daily. She says she is feeling better on no medication. Her anxiety levels feel fine right now. She is also working from home at this time. Sleeping better now than she previously was. Pt is not currently seeing a counselor. Patient reiterated no suicidal thoughts at this time; take medication as directed; contact 911 and go to the ER if becomes suicidal; discussed side effects of medication with patient; encouraged healthy diet and exericise; encouraged patient to see a counselor Assessment & Plan (12/14/2019 6:22 PM CDT): Discussed/ordered labs, Condition is worsening encouraged healthy, low carbohydrate lifestyle and at least 150min/week of exercise, states Ambien is no longer working. We will trial patient on buspirone 10mg at bedtime. Take this along with melatonin 10mg at bedtime. Functional urinary incontinence 12/14/2019 Overview (12/14/2019): Assessment & Plan (10/03/2023 3:05 PM SMOKE INSPECTOR): -chronic, stable -continue on oxybutynin XL 10 mg daily -continue seeing pc network technician Assessment & Plan (03/26/2023 11:28 AM CDT): -chronic, stable -continue on oxybutynin XL 10 mg daily -continue seeing pc network technician Assessment & Plan (09/25/2022 7:35 AM SMOKE INSPECTOR): HPI: Condition is stable A&P: Discussed/ordered labs, encouraged healthy, low carbohydrate lifestyle and at least 150min/week of exercise, continue on oxybutynin 10 mg daily and continue seeing pc network technician Assessment & Plan (02/05/2022 8:19 AM CDT): HPI: Condition is stable A&P: Discussed/ordered labs, encouraged healthy, low carbohydrate lifestyle and at least 150min/week of exercise, continue on Oxybutynin 10 mg daily, continue to see Dr. Carroll THEODORE Assessment & Plan (08/08/2021 1:53 PM SMOKE INSPECTOR): HPI: Condition is stable A&P: Discussed/ordered labs, encouraged healthy, low carbohydrate lifestyle and at least 150min/week of exercise, continue on Oxybutynin 10 mg daily, continue see Dr. Carroll THEODORE Assessment & Plan (01/24/2021 4:03 PM CDT): HPI: Condition is stable A&P: Discussed/ordered labs, encouraged healthy, low carbohydrate lifestyle and at least 150min/week of exercise, continue on oxybutynin 10mg daily, continue to see Dr. Hodges (ethylene plant helper) Assessment & Plan (12/14/2019 6:23 PM CDT): Discussed/ordered labs, Condition is stable encouraged healthy, low carbohydrate lifestyle and at least 150min/week of exercise, continue on oxybutynin xl 5mg daily. Patient sees Dr. Hodges (ethylene plant helper) Edema of all four extremities 12/14/2019 Assessment & Plan (04/13/2024 12:00 PM CDT): -chronic, stable -continue on triamterene-hydrochlorothiazide 37.5-25 mg daily -drink plenty of water and avoid salt Assessment & Plan (10/03/2023 3:04 PM SMOKE INSPECTOR): -chronic, stable -continue on triamterene-hydrochlorothiazide 37.5-25 mg daily -drink plenty of water and avoid salt Assessment & Plan (03/26/2023 11:28 AM CDT): -chronic, stable -continue on triamterene-hydrochlorothiazide 37.5-25 mg daily -drink plenty of water and avoid salt Assessment & Plan (09/25/2022 7:35 AM SMOKE INSPECTOR): HPI: Condition is stable A&P: Discussed/ordered labs, encouraged healthy, low carbohydrate lifestyle and at least 150min/week of exercise, continue on triamterene/hydrochlorothiazide 37.5/25 mg daily. Drink plenty of water and avoid salt Assessment & Plan (02/05/2022 3:39 PM CDT): HPI: Condition is stable A&P: Discussed/ordered labs, encouraged healthy, low carbohydrate lifestyle and at least 150min/week of exercise, continue on Triamterene/hydrochlorothiazide 37.5/25 mg daily Push water intake Avoid salt Assessment & Plan (08/08/2021 1:53 PM SMOKE INSPECTOR): HPI: Condition is stable A&P: Discussed/ordered labs, encouraged healthy, low carbohydrate lifestyle and at least 150min/week of exercise, continue on Triamterene hydrochlorothiazide 37.5/25 mg daily Assessment & Plan (01/24/2021 4:02 PM CDT): HPI: Condition is stable A&P: Discussed/ordered labs, encouraged healthy, low carbohydrate lifestyle and at least 150min/week of exercise, continue on triamterene/hctz 37.5/25mg daily Assessment & Plan (12/14/2019 6:20 PM CDT): Discussed/ordered labs, Condition is stable encouraged healthy, low carbohydrate lifestyle and at least 150min/week of exercise, continue on triamterene/hctz 37.5/25mg daily. Pt states that she has been worked up for this and not found any reason for the swelling. Resolved Problems Problem Noted Date Diagnosed Date Resolved Date Fluid level behind tympanic membrane of both ears 01/26/2020 02/05/2022 Assessment & Plan (08/08/2021 1:52 PM SMOKE INSPECTOR): HPI: Condition is stable A&P: Discussed environmental controls No smoking around patient, no animals in bedroom, keep windows closed, no hanging clothes on the line Take zyrtec/claritin/osvaldo in the am Saline rinse in the am Saline rinse about 15 min before bed Flonase 2 sprays each nostril, aim away from cartilage, spray once-baby sniff, switch to the other nostril and repeat. Wait a min or two and then do the second spray in each nostril, followed by a baby sniff If working or playing outside, may need to do saline rinses when coming in and change clothes right away Assessment & Plan (01/26/2020 4:09 PM CDT): Discussed environmental controls No smoking around patient, no animals in bedroom, keep windows closed, no hanging clothes on the line Take zyrtec/claritin/allgera in the am Saline rinse in the am Saline rinse about 15 min before bed Flonase 2 sprays each nostril, aim away from cartilage, spray once-baby sniff, switch to the other nostril and repeat. Wait a min or two and then do the second spray in each nostril, followed by a baby sniff If working or playing outside, may need to do saline rinses when coming in and change clothes right away Recommend staying on the above treatment from the beginning of November to Come off of meds if possible during the summer Then restart on meds mid to late April until Thanksgiving Come off of meds if possible during the winter If this does not improve your ears, we will refer to ENT BMI 29.0-29.9,adult 12/14/2019 12/28/20 22 Assessment & Plan (09/25/2022 3:15 PM SMOKE INSPECTOR): Assessment & Plan (06/25/2022 6:56 AM CDT): HPI: Condition is stable goal BMI <30 A&P: Healthy, high-protein, lower carbohydrate, lower fat lifestyle and exercise for 150min/week recommended Recommend tracking everything you put in your mouth on an kenney like [employer] Lower carb substitutions: [employer] carries a zero net carb bread If you are looking for whole potatoes, like to use in soup or new potato shape/flavor, radishes are a great replacement If you are looking for mashed potatoes, riced cauliflower in the frozen bag section are a great replacement For pasta, try using zucchini noodles, lay them out on a cookie sheet and pat dry with a tea towel to try to remove as much moisture as possible. Heat your pasta sauce on the stove and put the noodles in for 30-45 seconds. If you leave them in much longer they will become mushy [place] and/or coconut flour instead of regular flour For pizza dough, try fathead pizza dough recipe online. To get a crispy crust, bake on one side for 8-12 min, then flip over and bake on the other side for 8-12 min, then put toppings on and bake until the cheese on top of pizza melts maciejffnishant recipe online For ice cream, try the brand Enlightened To replace coffee creamer and make it low carb, use heavy creamer with sugar free [place] sweetener For chips, try Whisps or pork rinds For yogurt, try Two Good czech yogurt Use Emiliano for recipe ideas. Type in low carb... Hand Measurements: A fist or cupped hand = 1 cup 1 cup = 1 -2 servings of fruit juice 1 oz. of cold cereal 2 oz. of cooked cereal, rice or pasta 8 oz. of milk or yogurt A thumb = 1 oz. of cheese Consuming low-fat cheese helps you meet the required servings from the milk, yogurt and cheese group. 1 oz. of low-fat cheese counts as 8 oz. of milk or yogurt. Handful = 1-2 oz. of snack food Thumb tip = 1 teaspoon Keep high-fat foods, such as peanut butter and mayonnaise, at a minimum. One teaspoon is equal to the end of your thumb, from the knuckle up. Three teaspoons equals 1 tablespoon. Palm = 3 oz. of meat Choose lean poultry, fish, shellfish and beef. One palm size portion equals 3 oz. for an adult and 1 -2 oz. for a child under 5. 1 tennis ball or a fist= 1/2 cup of fruit and vegetables Healthy diets include a variety of colorful fruits and vegetables every day. The secret to serving size is in your hand. Snacking can add up. Remember, 1 handful equals 1 oz. of nuts and small candies. For chips and pretzels, 2 handfuls equals 1 oz. Because hand sizes vary, compare your fist size to an actual measuring cup. Assessment & Plan (05/08/2022 6:58 AM CDT): HPI: Condition is stable goal BMI <30 A&P: Healthy, high-protein, lower carbohydrate, lower fat lifestyle and exercise for 150min/week recommended Recommend tracking everything you put in your mouth on an kenney like [employer] Lower carb substitutions: Aldi carries a zero net carb bread If you are looking for whole potatoes, like to use in soup or new potato shape/flavor, radishes are a great replacement If you are looking for mashed potatoes, riced cauliflower in the frozen bag section are a great replacement For pasta, try using zucchini noodles, lay them out on a cookie sheet and pat dry with a tea towel to try to remove as much moisture as possible. Heat your pasta sauce on the stove and put the noodles in for 30-45 seconds. If you leave them in much longer they will become mushy [place] and/or coconut flour instead of regular flour For pizza dough, try fathead pizza dough recipe online. To get a crispy crust, bake on one side for 8-12 min, then flip over and bake on the other side for 8-12 min, then put toppings on and bake until the cheese on top of pizza melts chazuleika recipe online For ice cream, try the brand Enlightened To replace coffee creamer and make it low carb, use heavy creamer with sugar free [place] sweetener For chips, try Whisps or pork rinds For yogurt, try Two Good czech yogurt Use Pinterest for recipe ideas. Type in low carb... Hand Measurements: A fist or cupped hand = 1 cup 1 cup = 1 -2 servings of fruit juice 1 oz. of cold cereal 2 oz. of cooked cereal, rice or pasta 8 oz. of milk or yogurt A thumb = 1 oz. of cheese Consuming low-fat cheese helps you meet the required servings from the milk, yogurt and cheese group. 1 oz. of low-fat cheese counts as 8 oz. of milk or yogurt. Handful = 1-2 oz. of snack food Thumb tip = 1 teaspoon Keep high-fat foods, such as peanut butter and mayonnaise, at a minimum. One teaspoon is equal to the end of your thumb, from the knuckle up. Three teaspoons equals 1 tablespoon. Palm = 3 oz. of meat Choose lean poultry, fish, shellfish and beef. One palm size portion equals 3 oz. for an adult and 1 -2 oz. for a child under 5. 1 tennis ball or a fist= 1/2 cup of fruit and vegetables Healthy diets include a variety of colorful fruits and vegetables every day. The secret to serving size is in your hand. Snacking can add up. Remember, 1 handful equals 1 oz. of nuts and small candies. For chips and pretzels, 2 handfuls equals 1 oz. Because hand sizes vary, compare your fist size to an actual measuring cup. Assessment & Plan (02/05/2022 3:40 PM CDT): HPI: Condition is Near goal: goal BMI <30 A&P: Healthy, high-protein, lower carbohydrate, lower fat lifestyle and exercise for 150min/week recommended Recommend tracking everything you put in your mouth on an kenney like [employer] Lower carb substitutions: Ald[employer] carries a zero net carb bread If you are looking for whole potatoes, like to use in soup or new potato shape/flavor, radishes are a great replacement If you are looking for mashed potatoes, riced cauliflower in the frozen bag section are a great replacement For pasta, try using zucchini noodles, lay them out on a cookie sheet and pat dry with a tea towel to try to remove as much moisture as possible. Heat your pasta sauce on the stove and put the noodles in for 30-45 seconds. If you leave them in much longer they will become mushy [place] and/or coconut flour instead of regular flour For pizza dough, try fathead pizza dough recipe online. To get a crispy crust, bake on one side for 8-12 min, then flip over and bake on the other side for 8-12 min, then put toppings on and bake until the cheese on top of pizza melts chaffles recipe online For ice cream, try the brand Enlightened To replace coffee creamer and make it low carb, use heavy creamer with sugar free [place] sweetener For chips, try Whisps or pork rinds For yogurt, try Two Good czech yogurt Use Emiliano for recipe ideas. Type in low carb... Hand Measurements: A fist or cupped hand = 1 cup 1 cup = 1 -2 servings of fruit juice 1 oz. of cold cereal 2 oz. of cooked cereal, rice or pasta 8 oz. of milk or yogurt A thumb = 1 oz. of cheese Consuming low-fat cheese helps you meet the required servings from the milk, yogurt and cheese group. 1 oz. of low-fat cheese counts as 8 oz. of milk or yogurt. Handful = 1-2 oz. of snack food Thumb tip = 1 teaspoon Keep high-fat foods, such as peanut butter and mayonnaise, at a minimum. One teaspoon is equal to the end of your thumb, from the knuckle up. Three teaspoons equals 1 tablespoon. Palm = 3 oz. of meat Choose lean poultry, fish, shellfish and beef. One palm size portion equals 3 oz. for an adult and 1 -2 oz. for a child under 5. 1 tennis ball or a fist= 1/2 cup of fruit and vegetables Healthy diets include a variety of colorful fruits and vegetables every day. The secret to serving size is in your hand. Snacking can add up. Remember, 1 handful equals 1 oz. of nuts and small candies. For chips and pretzels, 2 handfuls equals 1 oz. Because hand sizes vary, compare your fist size to an actual measuring cup. Assessment & Plan (08/08/2021 1:54 PM SMOKE INSPECTOR): HPI: Condition is not at/near goal goal BMI <30 A&P: Healthy, high-protein, lower carbohydrate, lower fat lifestyle and exercise for 150min/week recommended Substitutions: Recommend tracking everything you put in your mouth on an kenney like [employer] or [employer] carries a zero net carb bread If you are looking for whole potatoes, like to use in soup or new potato shape/flavor, radishes are a great replacement If you are looking for mashed potatoes, riced cauliflower in the frozen bag section are a great replacement For pasta, try using zucchini noodles, lay them out on a cookie sheet and pat dry with a tea towel to try to remove as much moisture as possible. Heat your pasta sauce on the stove and put the noodles in for 30-45 seconds. If you leave them in much longer they will become mushy [place] and/or coconut flour instead of regular flour For pizza dough, try fathead pizza dough recipe online. To get a crispy crust, bake on one side for 8-12 min, then flip over and bake on the other side for 8-12 min, then put toppings on and bake until the cheese on top of pizza melts chaffles recipe online For ice cream, try the brand Enlightened To replace coffee creamer and make it low carb, use heavy creamer with sugar free Torani sweetener For chips, try Whisps or pork rinds For yogurt, try Two Good czech yogurt Use Pinterest for recipe ideas. Type in low carb... Assessment & Plan (01/24/2021 4:20 PM CDT): HPI: Condition is improving, but not at goal -she is doing well eating low carb A&P: Healthy, low carbohydrate lifestyle and exercise for 150min/week recommended Substitutions: Recommend tracking everything you put in your mouth on an kenney like [employer] or [employer] carries a zero net carb bread If you are looking for whole potatoes, like to use in soup or new potato shape/flavor, radishes are a great replacement If you are looking for mashed potatoes, riced cauliflower in the frozen bag section are a great replacement For pasta, try using zucchini noodles, lay them out on a cookie sheet and pat dry with a tea towel to try to remove as much moisture as possible. Heat your pasta sauce on the stove and put the noodles in for 30-45 seconds. If you leave them in much longer they will become mushy [place] and/or coconut flour instead of regular flour For pizza dough, try fathead pizza dough recipe online. To get a crispy crust, bake on one side for 8-12 min, then flip over and bake on the other side for 8-12 min, then put toppings on and bake until the cheese on top of pizza melts chaffles recipe online For ice cream, try the brand Enlightened To replace coffee creamer and make it low carb, use heavy creamer with sugar free Torani sweetener For chips, try Whisps or pork rinds For yogurt, try Two Good czech yogurt Use Emiliano for recipe ideas. Type in low carb... Assessment & Plan (10/24/2020 8:05 AM SMOKE INSPECTOR): HPI: Condition is worsening, she is A&P: Healthy, low carbohydrate lifestyle and exercise for 150min/week recommended Substitutions: [employer] carries a zero net carb bread If you are looking for whole potatoes, like to use in soup or new potato shape/flavor, radishes are a great replacement If you are looking for mashed potatoes, riced cauliflower in the frozen bag section are a great replacement For pasta, try using zucchini noodles, lay them out on a cookie sheet and pat dry with a tea towel to try to remove as much moisture as possible. Heat your pasta sauce on the stove and put the noodles in for 30-45 seconds. If you leave them in much longer they will become mushy [place] and/or coconut flour instead of regular flour For pizza dough, try fathead pizza dough recipe online. To get a crispy crust, bake on one side for 8-12 min, then flip over and bake on the other side for 8-12 min, then put toppings on and bake until the cheese on top of pizza melts chaffles recipe online For ice cream, try the brand Enlightened To replace coffee creamer and make it low carb, use heavy creamer with sugar free [place]ani sweetener For chips, try Whisps or pork rinds For yogurt, try Two Good czech yogurt Use Pinterest for recipe ideas. Type in low carb... Assessment & Plan (03/01/2020 3:34 PM CDT): Healthy, low carbohydrate lifestyle and exercise for 150min/week recommended Assessment & Plan (01/26/2020 1:22 PM CDT): Healthy, low carbohydrate lifestyle and exercise for 150min/week recommended Assessment & Plan (12/14/2019 3:12 PM CDT): Healthy, low carbohydrate lifestyle and exercise for 150min/week recommended. Patient has tried weight watchers and counting calories and exercise and has had no results. Immunizations Immunization Administration Dates Next Due Influenza, Quadrivalent, Spl it, Preservative Free, Intramuscular 07/11/2023 Influenza, Trivalent, Preser vative Free, Intramuscular 09/13/2024 Influenza, Unspecified 06/29/2021,2020(Deferred: Patient Refused),06/29/2020,06/29/2019, 018 Pfizer SARS-CoV-2 Monovalent Vaccination (12+ Yrs) PURPLE 01/30/2021,01/09/2021 Tdap 08/08/2021 ZOSTER Recombinant 07/08/2022,05/08/2022 Social History Tobacco Use Types Packs/Day Years Used Date Smoking Tobacco: Never Cigarettes Passive Smoke Exposure: Never Smokeless Tobacco: Never Tobacco Cessation:Counseling Given: Not Answered Alcohol Use Standard Drinks/Week Comments Not Currently [...] points, staff should administer the PHQ-9) 0 02/04/2025 Comments Unknown Sex and Gender Information Value Date Recorded Sex Assigned at Not on file Legal Sex Female 2:38 AM SMOKE INSPECTOR Gender Identity Female 12/27/2019 3:58 PM CDT Sexual Orientation Not on file Last Filed Vital Signs Vital Sign Reading Time Taken Comments Blood Pressure 109/75 02/04/2025 12:41 PM CDT Pulse 91 02/04/2025 12:41 PM CDT Temperature 36.6 C (97.8 F) 02/04/2025 12:41 PM CDT Respiratory Rate 16 02/04/2025 12:41 PM CDT Oxygen Saturation 98% 02/04/2025 12:41 PM CDT Inhaled Oxygen Concentration - - Weight 79.4 kg (175 lb) 02/04/2025 12:41 PM CDT Height 152.4 cm (5') 02/04/2025 12:41 PM CDT Body Mass Index 34.18 02/04/2025 12:41 PM CDT Plan of Treatment Not on file Procedures Procedure Name Priority Date/Time Associated Diagnosis Comments BASIC METABOLIC PANEL Routine 01/31/2025 9:01 AM CDT Hypokalemia HEMOGLOBIN A1C Routine 01/12/2025 6:55 AM CDT Mixed hyperlipidemia Class 2 severe obesity with serious comorbidity and body mass index (BMI) of 36.0 to 36.9 in adult, unspecified obesity type (HCC) Prediabetes Dizziness Generalized anxiety disorder Moderate episode of recurrent major depressive disorder (HCC) Screening for thyroid disorder LIPID PANEL Routine 01/12/2025 6:55 AM CDT Mixed hyperlipidemia Class 2 severe obesity with serious comorbidity and body mass index (BMI) of 36.0 to 36.9 in adult, unspecified obesity type (HCC) Prediabetes Dizziness Generalized anxiety disorder Moderate episode of recurrent major depressive disorder (HCC) Screening for thyroid disorder THYROID FUNCTION CASCADE Routine 01/12/2025 6:55 AM CDT Mixed hyperlipidemia Class 2 severe obesity with serious comorbidity and body mass index (BMI) of 36.0 to 36.9 in adult, unspecified obesity type (HCC) Prediabetes Dizziness Generalized anxiety disorder Moderate episode of recurrent major depressive disorder (HCC) Screening for thyroid disorder COMPREHENSIVE METABOLIC PANEL Routine 01/12/2025 6:55 AM CDT Mixed hyperlipidemia Class 2 severe obesity with serious comorbidity and body mass index (BMI) of 36.0 to 36.9 in adult, unspecified obesity type (HCC) Prediabetes Dizziness Generalized anxiety disorder Moderate episode of recurrent major depressive disorder (HCC) Screening for thyroid disorder CBC WITH AUTO DIFFERENTIAL Routine 01/12/2025 6:55 AM CDT Mixed hyperlipidemia Class 2 severe obesity with serious comorbidity and body mass index (BMI) of 36.0 to 36.9 in adult, unspecified obesity type (HCC) Prediabetes Dizziness Generalized anxiety disorder Moderate episode of recurrent major depressive disorder (HCC) Screening for thyroid disorder DIAGNOSTIC MAMMOGRAM BILATERAL W LUPILLO Schedule Routine, Read Routine (OP Routine) 09/02/2024 HEPATITIS PANEL, ACUTE Routine 08/10/2021 11:04 AM SMOKE INSPECTOR Pruritus COLONOSCOPY Routine 11/13/2018 from Last 3 Months or Most Recently Relevant to Health Maintenance Results * (ABNORMAL) Basic metabolic panel (01/31/2025 9:01 AM CDT) [facility] Glucose 100(H) 65 - 99 mg/dL [facility] [...] 9:01 AM CDT 01/31/2025 9:02 AM CDT [facility] LAB BLOOD ORDERABLES Final R esult Performing Organization Address City/[facility]/ZIP Co de Phone Number QUEST [facility] [address] [place] [address] * Thyroid Function [place] (01/12/2025 6:55 AM CDT) TSH 1.32 0.40 - 4.50 mIU/L [facility] Blood 01/12/2025 6:55 AM CDT 01/12/2025 6:56 AM CDT [facility] LAB BLOOD ORDERABLES Final R [facility] Performing Organization Address City/[facility]/ZIP Co de Phone Number QUEST [facility] [address] [place] [address] * CBC with auto differential (01/12/2025 6:55 AM CDT) WBC 6.9 3.8 - 10.8 Thousand/u L [facility] RBC, POC 4.43 3.80 - 5.10 Million/uL [facility] Hgb 13.6 11.7 - 15.5 g/dL [facility] Hct 41.6 35.0 - 45.0 % [facility] MCV 93.9 80.0 - 100.0 fL [facility] MCH 30.7 27.0 - 33.0 pg [facility] MCHC 32.7 32.0 - 36.0 g/dL [facility] Comment: For adults, a slight decrease in the calculated MCHC value (in the range of 30 to 32 g/dL) is most likely not clinically significant; however, it should be interpreted with caution in correlation with other red cell parameters and the patient's clinical condition. Rdw 12.3 11.0 - 15.0 % [facility] Platelets 267 140 - 400 Thousand/u L [facility] MPV 9.3 7.5 - 12.5 fL [facility] Neutrophils, abs 4,147 1,500 - 7,800 cells/uL [facility] Lymphocytes, abs 2,070 850 - 3,900 cells/uL [facility] Monocyte abs 462 200 - 950 cells/uL [facility] Eosinophils, abs 193 15 - 500 cells/uL [facility] Basophils, abs 28 0 - 200 cells/uL [facility] Neutrophils 60.1 % [facility] Lymphocyte pct 30.0 % [facility] Monocytes 6.7 % [facility] Eosinophils 2.8 % [facility] Basophils 0.4 % [facility] Blood 01/12/2025 6:55 AM CDT 01/12/2025 6:56 AM CDT Rima Wiggins NP LAB BLOOD ORDERABLES Final R esult [facility] [address] [place] [address] * Hemoglobin A1c (01/12/2025 6:55 AM CDT) [facility] Hgb A1C 5.4 <5.7 % of total Hgb [facility] Comment: For the purpose of screening for the presence of diabetes: <5.7% Consistent with the absence of diabetes 5.7-6.4% Consistent with increased risk for diabetes (prediabetes) > or =6.5% Consistent with diabetes This assay result is consistent with a decreased risk of diabetes. Currently, no consensus exists regarding use of hemoglobin A1c for diagnosis of diabetes in children. According to [place] Diabetes Association (ADA) guidelines, hemoglobin A1c <7.0% represents optimal control in non- diabetic patients. Different metrics may apply to specific patient populations. Standards of Medical Care in Diabetes(ADA). Blood 01/12/2025 6:55 AM CDT 01/12/2025 6:56 AM CDT Rima Wiggins NP LAB BLOOD ORDERABLES Final R esult [facility] [employer] [facility] [address] [place] [address] * Lipid panel (01/12/2025 6:55 AM CDT) Pathologist [facility] Cholesterol 144 <200 mg/dL [facility] HDL 65 > OR = 50 mg/dL [facility] Triglycerides 78 <150 mg/dL [facility] LDL 63 mg/dL (calc) [facility] Comment: Reference range: <100 Desirable range <100 mg/dL for primary prevention; <70 mg/dL for patients with CHD or diabetic patients with > or = 2 CHD risk factors. LDL-C is now calculated using the Vernon-Jennifer calculation, which is a validated novel method providing better accuracy than the Friedewald equation in the estimation of LDL-C. Vernon SS et al. BRAULIO. 2013;310(19): 9595-7333 (http://education.ModiFace/faq/CRP322) Chol/HDL ratio 2.2 <5.0 (calc) [facility] Non-HDL, (LDL+VLDL) 79 <130 mg/dL (calc) [facility] Comment: For patients with diabetes plus 1 major ASCVD risk factor, treating to a non-HDL-C goal of <100 mg/dL (LDL-C of <70 mg/dL) is considered a therapeutic option. Blood 01/12/2025 6:55 AM CDT 01/12/2025 6:56 AM CDT Rima Wiggins NP LAB BLOOD ORDERABLES Final R esult [facility] [address] [place] [address] * (ABNORMAL) Comprehensive metabolic panel (01/12/2025 6:55 AM CDT) Glucose 100(H) 65 - 99 mg/dL [facility] Comment: Fasting reference interval For someone without known diabetes, a glucose value between 100 and 125 mg/dL is consistent with prediabetes and should be confirmed with a follow-up test. BUN 10 7 - 25 mg/dL [facility] Creatinine 0.93 0.50 - 1.03 mg/dL [facility] eGFR 72 > OR = 60 mL/min/1.7 3m2 [facility] BUN/creat ratio SEE NOTE: 6 - 22 (calc) [facility] Comment: Not Reported: BUN and Creatinine are within reference range. Sodium 140 135 - 146 mmol/L [facility] Potassium, pl 3.3(L) 3.5 - 5.3 mmol/L [facility] Chloride 100 98 - 110 mmol/L [facility] CO2 33(H) 20 - 32 mmol/L [facility] Calcium 9.7 8.6 - 10.4 mg/dL [facility] Protein, sr 6.7 6.1 - 8.1 g/dL [facility] Albumin 4.2 3.6 - 5.1 g/dL [facility] GLOBULIN 2.5 1.9 - 3.7 g/dL (calc) [facility] Alb/glob ratio 1.7 1.0 - 2.5 (calc) [facility] Bilirubin, total 0.5 0.2 - 1.2 mg/dL [facility] Alk phos 53 37 - 153 U/L [facility] AST 20 10 - 35 U/L [facility] ALT (SGPT) 15 6 - 29 U/L [facility] Blood 01/12/2025 6:55 AM CDT 01/12/2025 6:56 AM CDT Rima Wiggins NP LAB BLOOD ORDERABLES Final R esult [place] [address] [place] [address] * Diagnostic Mammogram Bilateral [place] (09/02/2024) Anatomical Region Laterality Modality Breast Bilateral Mammography Generic External Data Provider IMG MAMMO PROCEDU RES Final Result * Hepatitis panel, acute (08/10/2021 11:04 AM SMOKE INSPECTOR) Hep A IgM Nonreactive Nonreactive LAUREL CRESPO ([place]) Comment: Interpretive Data: If Hep A IgM Ab is reported as Equivocal, a new sample should be drawn in two weeks for testing. Current interpretive data was last revised on 19. Testing performed by: [facility], [address] [place] [address], [place]., [address] Hep B core IgM Nonreactive Nonreactive Clary CRESPO ([place]) Comment: Interpretive Data If HepB Core IgM Ab is reported as Equivocal, a new sample should be drawn in two weeks for testing. Current interpretive data was last revised on 19. Testing performed by: [facility], [address] [place] [address], [place]., [address] Hep C Ab Nonreactive Nonreactive LAUREL CRESPO ([place]) Comment: Interpretive Data Nonreactive: Antibodies to HCV not detected. Does NOT exclude the possibility of recent exposure to HCV. Equivocal: Equivocal for HCV antibodies. Supplemental molecular testing will be automatically performed to determine infection status in accordance with current CDC screening recommendations. Reactive: Positive for HCV antibodies. This may represent current or past HCV infection. Supplemental molecular testing will be automatically performed to determine current infection status in accordance with current CDC screening recommendations. Interpretive data was last revised on 2019. Testing performed by: [facility], [address] [place] [address]., [id number] HepBsAg Nonreactive Nonreactive ELIEZERREY CRESPO ([place]) Comment:Testing performed by : [facility], [address] [place] [address]., [address] Blood 08/10/2021 11:0 4 AM SMOKE INSPECTOR 08/10/2021 4:40 PM SMOKE INSPECTOR Vangie Abel NP LAB MICROBIOLOGY - GENERAL ORDERABLES Final Result ELIEZERREY ZAK ([place]) 1 [facility] [place] [address] * Colonoscopy (11/13/2018) Anatomical Region Laterality Modality Other Narrative 11/13/2018 Copy of results scanned into chart on 03/16/21 Historical Provider ENDOSCOPY PROCEDURES Alfreda l Result from Last 3 Months or Most Recently Relevant to Health Maintenance [place] [employer] [place] [employer] [place] [employer] [facility] Care Teams Cellophaner Relationship Specialty Start Date End Date Rima Wiggins NP [address] [place] [address] [address] [place] [address] PCP - General Family Medicine 09/25/22 Fiona Hodges MD [address] [place] [address] Referring Physician Gynecology 12/14/19 Collins Guardado MD [address] [place] [address] Consulting Physician Gastroenterology 12/30/19
--- OUTSIDE RECORDS SUMMARY | 2025-03-11 07:26 | XMS_ITS | Continuity of Care Document ---
Author Organization [facility] [address] [facility] [address] [place] [address] Phone Care Team Providers Care Whipped Topping Mixer Name Role Phone King OD, Kyle Unavailable Unavailable Procedures Procedure Date CL Replacement - Vistakon Disp W/BW Soft Tax - Medical No Charge Contact Lens Check No Charge Contact Lens Check Eye Exam & Treatment Refraction Advance Directives Directive Yes / No Effective Date File Name No Information Encounters Encounter Description Practice Location Reason(s) For Visit Diagnoses Date Provider Providers Copied on Encounter [facility], [address] [place] [address] [address], [place], [place], [id number], tel:[phone] [facility] No Information 6-200 7 King OD Kyle. [address] [facility] , [address], [place], [place], [facility], . tel:[phone] [facility], [address] [place] [address] [address], [place], [place], [id number], [place] tel:[phone] [facility] No Information 8-200 7 King OD Kyle. [address] [facility] , [address], [place], [place], [facility], [place]. tel:[phone] [facility], [address] [place] [address] [address], [place], [place], [id number], tel:[phone] [facility] No Information Oct-2 1-200 7 King OD Kyle. [address] , [address], [place], [address], [place]. tel:[phone] [facility], [address], [place], [place], [id number], [place] tel:[phone] [facility] No Information 7-200 7 King OD Kyle. [address] [facility] , [address], [place], [address], [place]. tel:[phone] Family History Family Member Type Diagnosis Age At Onset No Information Payers Payer name Insurance type Covered republican ID Authoriza tion(s) No Information Social History Type Description Quantity Date Captured Comments Sex Female Smoking Status No Information Chief Complaint And Reason For Visit No Information Reason For Referral Reason For Referral No Information History Of Present Illness Encounter Date Complaint History Of Prese nt Illness No Information Functional Status Date Functional Assessmen t No Information Instructions Date Instruction Additional Infor mation No Information Assessments Type Assessment Date No Information Patient Care Teams Name Effective Dates (start - stop) Status Members No Information
--- OUTSIDE RECORDS SUMMARY | 2025-03-11 07:26 | XMS_ITS | Clinical Summary ---
Author Organization [facility] Medical Office Building [address] Address [address] [place] [address] Care Team Providers Care Cyber Crime Investigator Name Role Phone Fiona Hodges MD Unavailable [phone] Collins Guardado MD Unavailable [phone] Rima Wiggins NP Primary Care Provider Allergies No known active allergies Medications fluticasone [...] 05/17/2024 Assessment & Plan (09/13/2024 2:48 PM OIL AND GAS LEASE PUMPER): -chronic, stable -noted on echocardiogram from 05/03/2024 [...] 04/13/2024 Assessment & Plan (09/13/2024 2:47 PM OIL AND GAS LEASE PUMPER): -chronic, stable -possibly related to pulmonary hypertension [...] 03/26/2024 Assessment & Plan (09/13/2024 2:46 PM OIL AND GAS LEASE PUMPER): -chronic, stable -Discussed/ordered labs -recommend healthy, low carb diet and increase exercise -Patient's insurance will start to cover weight loss medications in September -Advised patient to message me in September and I will send in [employer] for her: Demo pen used to show [...] time Assessment & Plan (10/03/2023 3:05 PM OIL AND GAS LEASE PUMPER): -not improving -mini cog completed office today. [...] in your mouth on an kenney like Memolanepal -Continue on Zepbound 7.5 mg weekly -Follow [...] cup. Assessment & Plan (09/13/2024 2:46 PM OIL AND GAS LEASE PUMPER): -chronic, not at/near goal goal BMI <30 Healthy, high-protein, lower carbohydrate, lower fat lifestyle and exercise for 150min/week recommended Recommend tracking everything you put in your mouth on an kenney like [employer] -Patient's insurance will start to cover weight loss medications in September -Advised patient to message me in September and I will send in zepbound for her: Demo pen used to show [...] in your mouth on an kenney like [employer] Hand Measurements: A fist or cupped hand [...] in your mouth on an kenney like Memolanepal Hand Measurements: A fist or cupped hand [...] cup. Assessment & Plan (10/03/2023 3:03 PM OIL AND GAS LEASE PUMPER): HPI: Condition is not at/near goal goal BMI <30 A&P: Healthy, high-protein, lower carbohydrate, lower fat lifestyle and exercise for 150min/week recommended Recommend tracking everything you put in your mouth on an kenney like [employer] Hand Measurements: A fist or cupped hand [...] in your mouth on an kenney like [employer] -Advised patient to call her insurance company and see if they cover Wegovy, phentermine, or contrave. Advised patient she may also look into [facility] weight loss clinic for semaglutide injections. -Patient [...] cup. Assessment & Plan (09/25/2022 3:15 PM OIL AND GAS LEASE PUMPER): HPI: Condition is stable goal BMI <30 A&P: Healthy, high-protein, lower carbohydrate, lower fat lifestyle and exercise for 150min/week recommended Recommend tracking everything you put in your mouth on an kenney like [employer] Hand Measurements: A fist or cupped hand [...] 01/24/2021 Assessment & Plan (09/13/2024 2:45 PM OIL AND GAS LEASE PUMPER): -chronic, stable -discussed/ordered lab work -continue on vitamin D3 2000 units daily Assessment & Plan (05/17/2024 2:15 PM CDT): -chronic, stable -discussed/ordered lab work -continue on vitamin D3 2000 units daily Assessment & Plan (04/13/2024 11:58 AM CDT): -chronic, stable -discussed/ordered lab work -continue on vitamin D3 2000 units daily Assessment & Plan (10/03/2023 3:04 PM OIL AND GAS LEASE PUMPER): -chronic, stable -discussed/ordered lab work -continue on vitamin D3 2000 units daily Assessment & Plan (03/27/2023 1:48 PM CDT): -chronic, stable -continue on vitamin D3 2000 units daily -vitamin-D level ordered today Assessment & Plan (09/25/2022 7:33 AM OIL AND GAS LEASE PUMPER): HPI: Condition is stable A&P: Discussed/ordered labs, encouraged healthy, low carbohydrate lifestyle and at least 150min/week of exercise, continue on vitamin D3 2000 units daily Assessment & Plan (02/05/2022 8:17 AM CDT): HPI: Condition is at goal A&P: Discussed/ordered labs, encouraged healthy, low carbohydrate lifestyle and at least 150min/week of exercise, continue on Vitamin D3 6597-6678 units daily Assessment & Plan (08/08/2021 1:47 PM OIL AND GAS LEASE PUMPER): HPI: Condition is at goal A&P: Discussed/ordered labs, encouraged healthy, low carbohydrate lifestyle and at least 150min/week of exercise, continue on Vitamin-D3 8097-8281 units daily Assessment & Plan (01/24/2021 4:05 PM CDT): HPI: Condition is improving, but not at goal of 60-70 A&P: Discussed/ordered labs, encouraged healthy, low carbohydrate lifestyle and at least 150min/week of exercise, increase vit d3 to 8426-5720 units daily Moderate episode of recurrent major depressive d isorder 03/01/2020 Assessment & Plan (09/13/2024 2:45 PM OIL AND GAS LEASE PUMPER): -chronic, not at goal -patient does not [...] counselor Assessment & Plan (10/03/2023 3:04 PM OIL AND GAS LEASE PUMPER): Patient reiterated no suicidal thoughts at this [...] insomnia Assessment & Plan (09/25/2022 3:18 PM OIL AND GAS LEASE PUMPER): Patient reiterated no suicidal thoughts at this [...] hydroxyzine Assessment & Plan (08/08/2021 1:51 PM OIL AND GAS LEASE PUMPER): Patient reiterated no suicidal thoughts at this [...] time. Assessment & Plan (10/24/2020 8:10 AM OIL AND GAS LEASE PUMPER): Patient reiterated no suicidal thoughts at this [...] 12/14/2019 Assessment & Plan (09/13/2024 2:45 PM OIL AND GAS LEASE PUMPER): -chronic, not at goal -patient does not [...] counselor Assessment & Plan (10/03/2023 1:52 PM OIL AND GAS LEASE PUMPER): Patient reiterated no suicidal thoughts at this [...] insomnia Assessment & Plan (09/25/2022 3:29 PM OIL AND GAS LEASE PUMPER): Patient reiterated no suicidal thoughts at this [...] hydroxyzine Assessment & Plan (08/08/2021 1:54 PM OIL AND GAS LEASE PUMPER): Patient reiterated no suicidal thoughts at this [...] time. Assessment & Plan (10/24/2020 8:11 AM OIL AND GAS LEASE PUMPER): Patient reiterated no suicidal thoughts at this [...] 12/14/2019 Assessment & Plan (09/13/2024 2:45 PM OIL AND GAS LEASE PUMPER): -chronic, stable -Discussed/ordered labs -continue on rosuvastatin 40 mg nightly Assessment & Plan (05/17/2024 2:15 PM CDT): -chronic, stable -Discussed/ordered labs -continue on rosuvastatin 40 mg nightly Assessment & Plan (04/13/2024 11:59 AM CDT): -chronic, stable -Discussed/ordered labs -continue on rosuvastatin 40 mg nightly Assessment & Plan (10/03/2023 1:51 PM OIL AND GAS LEASE PUMPER): -chronic, not at/near goal -Discussed/ordered labs -increase to rosuvastatin 40 mg nightly Assessment & Plan (03/27/2023 1:48 PM CDT): -chronic, stable -continue on rosuvastatin 20 mg daily -lipid panel ordered today Assessment & Plan (09/25/2022 7:34 AM OIL AND GAS LEASE PUMPER): HPI: Condition is stable A&P: Discussed/ordered labs, encouraged healthy, low carbohydrate lifestyle and at least 150min/week of exercise, continue on rosuvastatin 20 mg daily Assessment & Plan (02/05/2022 8:20 AM CDT): HPI: Condition is stable A&P: Discussed/ordered labs, encouraged healthy, low carbohydrate lifestyle and at least 150min/week of exercise, continue on Rosuvastatin 20 mg daily Assessment & Plan (08/08/2021 1:54 PM OIL AND GAS LEASE PUMPER): HPI: Condition is stable A&P: Discussed/ordered labs, [...] insomnia Assessment & Plan (10/03/2023 3:05 PM OIL AND GAS LEASE PUMPER): Patient reiterated no suicidal thoughts at this [...] insomnia Assessment & Plan (09/25/2022 3:29 PM OIL AND GAS LEASE PUMPER): Patient reiterated no suicidal thoughts at this [...] hydroxyzine Assessment & Plan (08/08/2021 1:53 PM OIL AND GAS LEASE PUMPER): Patient reiterated no suicidal thoughts at this [...] time. Assessment & Plan (10/24/2020 8:11 AM OIL AND GAS LEASE PUMPER): Patient reiterated no suicidal thoughts at this [...] (12/14/2019): Assessment & Plan (10/03/2023 3:05 PM OIL AND GAS LEASE PUMPER): -chronic, stable -continue on oxybutynin XL 10 mg daily -continue seeing bulk cooler installer Assessment & Plan (03/26/2023 11:28 AM CDT): -chronic, stable -continue on oxybutynin XL 10 mg daily -continue seeing bulk cooler installer Assessment & Plan (09/25/2022 7:35 AM OIL AND GAS LEASE PUMPER): HPI: Condition is stable A&P: Discussed/ordered labs, encouraged healthy, low carbohydrate lifestyle and at least 150min/week of exercise, continue on oxybutynin 10 mg daily and continue seeing bulk cooler installer Assessment & Plan (02/05/2022 8:19 AM CDT): HPI: Condition is stable A&P: Discussed/ordered labs, encouraged healthy, low carbohydrate lifestyle and at least 150min/week of exercise, continue on Oxybutynin 10 mg daily, continue to see Dr. Carroll THEODORE Assessment & Plan (08/08/2021 1:53 PM OIL AND GAS LEASE PUMPER): HPI: Condition is stable A&P: Discussed/ordered labs, encouraged healthy, low carbohydrate lifestyle and at least 150min/week of exercise, continue on Oxybutynin 10 mg daily, continue see Dr. Carrlol THEODORE Assessment & Plan (01/24/2021 4:03 PM CDT): HPI: Condition is stable A&P: Discussed/ordered labs, encouraged healthy, low carbohydrate lifestyle and at least 150min/week of exercise, continue on oxybutynin 10mg daily, continue to see Dr. Hodges (recycling operations manager) Assessment & Plan (12/14/2019 6:23 PM CDT): Discussed/ordered labs, Condition is stable encouraged healthy, low carbohydrate lifestyle and at least 150min/week of exercise, continue on oxybutynin xl 5mg daily. Patient sees Dr. Hodges (recycling operations manager) Edema of all four extremities 12/14/2019 Assessment & Plan (04/13/2024 12:00 PM CDT): -chronic, stable -continue on triamterene-hydrochlorothiazide 37.5-25 mg daily -drink plenty of water and avoid salt Assessment & Plan (10/03/2023 3:04 PM OIL AND GAS LEASE PUMPER): -chronic, stable -continue on triamterene-hydrochlorothiazide 37.5-25 mg daily -drink plenty of water and avoid salt Assessment & Plan (03/26/2023 11:28 AM CDT): -chronic, stable -continue on triamterene-hydrochlorothiazide 37.5-25 mg daily -drink plenty of water and avoid salt Assessment & Plan (09/25/2022 7:35 AM OIL AND GAS LEASE PUMPER): HPI: Condition is stable A&P: Discussed/ordered labs, [...] salt Assessment & Plan (08/08/2021 1:53 PM OIL AND GAS LEASE PUMPER): HPI: Condition is stable A&P: Discussed/ordered labs, [...] 02/05/2022 Assessment & Plan (08/08/2021 1:52 PM OIL AND GAS LEASE PUMPER): HPI: Condition is stable A&P: Discussed environmental [...] will refer to ENT BMI 29.0-29.9,adult 12/14/2019 09/25/20 Assessment & Plan (09/25/2022 3:15 PM OIL AND GAS LEASE PUMPER): Assessment & Plan (06/25/2022 6:56 AM CDT): HPI: Condition is stable goal BMI <30 A&P: Healthy, high-protein, lower carbohydrate, lower fat lifestyle and exercise for 150min/week recommended Recommend tracking everything you put in your mouth on an kenney like [employer] Lower carb substitutions: Aldi carries a zero [...] in much longer they will become mushy [place] and/or coconut flour instead of regular flour [...] pork rinds For yogurt, try Two Good rwandan yogurt Use Emiliano for recipe ideas. Type [...] in your mouth on an kenney like [employer] Lower carb substitutions: Aldi carries a zero [...] in much longer they will become mushy [place] and/or coconut flour instead of regular flour [...] pork rinds For yogurt, try Two Good rwandan yogurt Use Pinterest for recipe ideas. Type [...] in your mouth on an kenney like [employer] Lower carb substitutions: Belinda carries a zero net carb bread [...] in much longer they will become mushy [place] and/or coconut flour instead of regular flour [...] pork rinds For yogurt, try Two Good rwandan yogurt Use Pinterbrandin for recipe ideas. Type in low carb... [...] cup. Assessment & Plan (08/08/2021 1:54 PM OIL AND GAS LEASE PUMPER): HPI: Condition is not at/near goal goal BMI <30 A&P: Healthy, high-protein, lower carbohydrate, lower fat lifestyle and exercise for 150min/week recommended Substitutions: Recommend tracking everything you put in your mouth on an kenney like [employer] or Zuznow Aldi carries a zero net carb bread [...] in much longer they will become mushy [place] and/or coconut flour instead of regular flour [...] pork rinds For yogurt, try Two Good rwandan yogurt Use Emiliano for recipe ideas. Type in low carb... Assessment & Plan (01/24/2021 4:20 PM CDT): HPI: Condition is improving, but not at goal -she is doing well eating low carb A&P: Healthy, low carbohydrate lifestyle and exercise for 150min/week recommended Substitutions: Recommend tracking everything you put in your mouth on an kenney like [employer] or [employer] Belinda carries a zero net carb bread [...] in much longer they will become mushy [place] and/or coconut flour instead of regular flour [...] pork rinds For yogurt, try Two Good rwandan yogurt Use Pinterest for recipe ideas. Type in low carb... Assessment & Plan (10/24/2020 8:05 AM OIL AND GAS LEASE PUMPER): HPI: Condition is worsening, she is A&P: Healthy, low carbohydrate lifestyle and exercise for 150min/week recommended Substitutions: Aldi carries a zero net carb bread [...] in much longer they will become mushy [place] and/or coconut flour instead of regular flour [...] pork rinds For yogurt, try Two Good rwandan yogurt Use Pinterest for recipe ideas. Type [...] and exercise and has had no results. Encounters Date Type Department Care Team Description 02/04/2025 1:00 PM CDT Office Visit [facility] Primary Care at [address] [phone] Rima Wiggins NP Class 1 obesity with serious comorbidity and body mass index (BMI) of 34.0 to 34.9 in adult, unspecified obesity type (Primary Dx); Hypokalemia; Elevated serum creatinine 01/14/2025 Results Follow-Up [facility] Primary Care at [address] [phone] Rima Wiggins NP CBC with auto differential, Comprehensive metabolic panel, Thyroid Function [place], Additional followed-up results: 2 01/10/2025 Orders Only [facility] Primary Care at [address] [phone] Rima Wiggins NP Mixed hyperlipidemia (Primary Dx); Class 2 severe obesity with serious comorbidity and body mass index (BMI) of 36.0 to 36.9 in adult, unspecified obesity type (HCC); Prediabetes; Dizziness; Generalized anxiety disorder; Moderate episode of recurrent major depressive disorder (HCC); Screening for thyroid disorder 01/05/2025 Orders Only [facility] Primary Care at [address] [phone] Rima Wiggins NP Class 2 severe obesity with serious comorbidity and body mass index (BMI) of 36.0 to 36.9 in adult, unspecified obesity type (HCC); Prediabetes 01/03/2025 Telephone [facility] Primary Care at [address] [phone] Rima Wiggins NP Medical Question/Miscellaneous 12/13/2024 Orders Only [facility] Primary Care at [address] [phone] Rima Wiggins NP Gastroesophageal reflux disease without esophagitis (Primary Dx) from Last 3 Months Immunizations Immunization Administration Dates Next Due Influenza, Quadrivalent, Spl it, Preservative Free, Intramuscular 07/11/2023 Influenza, Trivalent, Preser vative Free, Intramuscular 09/13/2024 Influenza, Unspecified 06/29/2021,2020(Deferred: Patient Refused),06/29/2020,06/29/2019, 018 Pfizer SARS-CoV-2 Monovalent Vaccination (12+ Yrs) PURPLE 01/30/2021,01/09/2021 Tdap 08/08/2021 ZOSTER Recombinant 07/08/2022,05/08/2022 Surgical History Surgery Date Site/Laterality Comments BUNIONECTOMY 10/19/2019 R foot TONSILLECTOMY Medical History Medical History Date Comments Anxiety Depression GERD (gastroesophageal reflux disease) 09/29/2008 Migraines 09/29/1986 Family History Medical History Relation Name Comments Hypertension Brother 1 Bharat Bill Jr No Known Problems Brother 2 No Known Problems Brother 3 Arthritis Father Bharat Bill Hypertension Father Bharat Fly Macular degeneration Father Bharat Bill Hypertension Mother Cuca Bill Glaucoma Paternal Grandmother Stroke Paternal Grandmother Multiple sclerosis Sister 1 No Known Problems Sister 2 Relation Name Status Comments Brother 1 Bharat Bill Jr Alive Brother 2 Alive Brother 3 Alive Father Bharat Bill Alive Mother Cuca Bill Alive Paternal Grandmother Sister 1 Alive Sister 2 Alive Social History Tobacco Use Types Packs/Day Years [...] on file Legal Sex Female 2:38 AM OIL AND GAS LEASE PUMPER Gender Identity Female 12/27/2019 3:58 PM CDT Sexual Orientation Not on file Obstetrics History Last Filed Vital Signs Vital Sign Reading [...] 02/04/2025 12:41 PM CDT Plan of Treatment Health Maintenance Due Date Last Done Comments Cervical Cancer Screening 10/24/2021 10/24/2020 Covid-19 Vaccine ( season) 2024 01/30/2021, 01/09/2021 Regular Well Visit/Exam 18-64 04/05/2025 04/05/2024 Breast Cancer Screening-Mammogram 09/02/2025 09/02/2024, 05/10/2022, 03/21/2021, Additional history exists Depression Screening 02/04/2026 02/04/2025, 09/13/2024, 05/17/2024, Additional history exists Colon Cancer Screening-Colonoscopy 11/13/2028 11/13/2018 DTaP/Tdap/Td Vaccine (2 - Td or Tdap) 08/08/2031 08/08/2021 Colon Cancer Screening-CT Colonography Discontinued 11/13/2018 Colon Cancer Screening-DNA Stool Discontinued 11/13/2018 Colon Cancer Screening-FIT Discontinued 11/13/2018 Colon Cancer Screening-Sigmoidoscopy Discontinued 11/13/2018 Hepatitis C Screening Completed 08/10/2021 Zoster Vaccine Completed 07/08/2022, 05/08/2022 Hepatitis B Screening Completed 09/10/2024 Influenza Vaccine Completed 09/13/2024, , 07/30/2022, Additional history exists Pneumococcal vaccine <65 Aged Out No longer eligible based on patient's age to complete this topic Procedures Procedure Name Priority Date/Time Associated Diagnosis [...] HEPATITIS PANEL, ACUTE Routine 08/10/2021 11:04 AM OIL AND GAS LEASE PUMPER Pruritus COLONOSCOPY Routine 11/13/2018 from Last 3 Months or Most Recently Relevant to Health Maintenance Results * (ABNORMAL) Basic metabolic panel (01/31/2025 9:01 AM CDT) Pathologist [facility] Glucose 100(H) 65 - 99 mg/dL [facility] [...] 9:01 AM CDT 01/31/2025 9:02 AM CDT [facility] LAB BLOOD ORDERABLES Final R esult Performing Organization Address [facility] Co de Phone Number [facility] [address] [place] [address] * Thyroid Function [place] (01/12/2025 6:55 AM CDT) [facility] TSH 1.32 0.40 - 4.50 mIU/L [facility] Blood 01/12/2025 6:55 AM CDT 01/12/2025 6:56 AM CDT [facility] LAB BLOOD ORDERABLES [facility] Performing Organization Address [facility]/ZIP Co de Phone Number [facility] [address] [place] [address] * CBC with auto differential (01/12/2025 6:55 AM CDT) [facility] WBC 6.9 3.8 - 10.8 Thousand/u L [...] BLOOD ORDERABLES Final R esult [facility] [address] [place] [address] * Hemoglobin A1c (01/12/2025 6:55 AM CDT) Hgb A1C 5.4 <5.7 % of total Hgb [facility] Comment: For the purpose of screening for the presence of diabetes: <5.7% Consistent with the absence of diabetes 5.7-6.4% Consistent with increased risk for diabetes (prediabetes) > or =6.5% Consistent with diabetes This assay result is consistent with a decreased risk of diabetes. Currently, no consensus exists regarding use of hemoglobin A1c for diagnosis of diabetes in children. According to [place] Diabetes Association (ADA) guidelines, hemoglobin A1c <7.0% represents optimal control in non- diabetic patients. Different metrics may apply to specific patient populations. Standards of Medical Care in Diabetes(ADA). Blood 01/12/2025 6:55 AM CDT 01/12/2025 6:56 AM CDT Rima Wiggins NP LAB BLOOD ORDERABLES Final R esult [facility] [address] [place] [address] * Lipid panel (01/12/2025 6:55 AM CDT) Pathologist [facility] Cholesterol 144 <200 mg/dL [facility] [...] equation in the estimation of LDL-C. Vernon DISLA et al. BRAULIO. 2013;310(19): 0987-6425 (http://education.NurseLiability.com.[employer]faq/FVB408) Chol/HDL ratio 2.2 <5.0 (calc) [facility] [...] LAB BLOOD ORDERABLES Final R esult [facility] [address] [address] * (ABNORMAL) Comprehensive metabolic panel (01/12/2025 6:55 [...] BLOOD ORDERABLES Final R esult [facility] [address] [place] [address] * Diagnostic Mammogram Bilateral [place] (09/02/2024) Anatomical Region Laterality Modality Breast Bilateral Mammography Generic External Data Provider IMG MAMMO PROCEDU RES Final Result * Hepatitis panel, acute (08/10/2021 11:04 AM OIL AND GAS LEASE PUMPER) Hep A IgM Nonreactive Nonreactive [facility] ([place]) Comment: Interpretive Data: If Hep A IgM Ab is reported as Equivocal, a new sample should be drawn in two weeks for testing. Current interpretive data was last revised on 19. Testing performed by: [address] [address] Hep B core IgM Nonreactive Nonreactive [facility] ([place]) Comment: Interpretive Data If HepB Core IgM Ab is reported as Equivocal, a new sample should be drawn in two weeks for testing. Current interpretive data was last revised on 19. Testing performed by: [facility], [address] [place] [address]., [id number] Hep C Ab Nonreactive Nonreactive [facility] ([place]) Comment: Interpretive Data Nonreactive: Antibodies to [...] last revised on 2019. Testing performed by: [facility], [address] [place] [address]., [id number] HepBsAg Nonreactive Nonreactive [facility] ([place]) Comment:Testing performed by : [facility], [address] [place] [address]., [id number] Blood 08/10/2021 11:0 4 AM OIL AND GAS LEASE PUMPER 08/10/2021 4:40 PM OIL AND GAS LEASE PUMPER Vangie Abel NP LAB MICROBIOLOGY - GENERAL ORDERABLES Final Result [facility] ([place]) [facility] Department [place] [address] * Colonoscopy (11/13/2018) Anatomical Region Laterality Modality Other Narrative 11/13/2018 Copy of results scanned into chart on 03/16/21 Historical Provider ENDOSCOPY PROCEDURES Alfreda l Result from Last 3 Months or Most Recently Relevant to Health Maintenance Insurance [employer] [place] [employer] [place] [facility] Care Teams Cyber Crime Investigator Relationship Specialty Start Date End Date Rima Wiggins NP [address] [place] [address] [address]ATH[address] [place] [address] PCP - General Family Medicine 09/25/22 Fiona Hodges MD [address] [place] [address] Referring Physician Gynecology 12/14/19 Collins Guardado MD [address] [place] [address] Consulting Physician Gastroenterology 12/30/19
--- OUTSIDE RECORDS SUMMARY | 2025-03-11 07:26 | XMS_ITS | Clinical Summary ---
Author Organization [facility] Address [address] 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 This disclosure is being madepursuant to the Care Everywhere program and may not contain all information available regarding this patient. Last updated 18.[facility] Allergies No known active allergies Medications * Be aware that medications may not be up to date on this document. Alwaysverify current medications with the patient. vitamin B-12 (CYANOCOBALAMIN ) 1000 MCG tablet Take 1,000 mcg by mouth once daily. Equal to 2000 mg daily Active levonorgestrel (MIRENA) 20 MCG/24HR IUD 1 Device by Intrauterine route once. Active FLUoxetine (PROZAC) 20 MG capsule 1 Cap once daily 1 6 Active traZODone (DESYREL) 50 MG tablet 1 Tab as needed 0 5 Active zolpidem (AMBIEN) 5 MG tablet 1 Tab once daily 0 6 Active phentermine (IONAMINE) 30 MG capsule Take 1 Cap by mouth daily before breakfast 30 Cap 0 6 Active metFORMIN ER 24hr (GLUCOPHAGE XR) 500 MG tablet TAKE 4 TABS BY MOUTH DAILY WITH DINNER. 120 Tab 11 6 Active Active Problems Problem Noted Date Diagnosed Date Insulin resistance 08/03/2012 Morbid obesity 03/25/2012 Goiter 03/25/2012 Overview (06/29/2015): Other malaise and fatigue 03/25/2012 Resolved Problems Problem Noted Date Diagnosed Date Resolved Date Hypothyroidism 03/25/2012 10/31/2015 Overview (06/29/2015): Family History Medical History Relation Name Comments Asthma Brother 4 Hypertension Brother 4 Hypertension Mother Thyroid Disease Sister 3 Diabetes Neg Hx Relation Name Status Comments Brother 1 Alive Brother 2 Alive Brother 3 Alive Brother 4 Father Alive Mother Alive Sister 1 Alive Sister 2 Alive Sister 3 Social History Tobacco Use Types Packs/Day Years Used Date Smoking Tobacco: Never Alcohol Use Standard Drinks/Week Comments No 0 (1 standard drink = 0.6 oz pur e alcohol) Comments Unknown Sex and Gender Information Value Date Recorded Sex Assigned at Not on file Legal Sex Female 6:13 AM BIOPHYSICS SCIENTIST Gender Identity Not on file Sexual Orientation Not on file Last Filed Vital Signs Vital Sign Reading Time Taken Comments Blood Pressure 98/58 10/31/2015 2:40 PM BIOPHYSICS SCIENTIST Pulse 64 10/31/2015 2:40 PM BIOPHYSICS SCIENTIST Temperature - - Respiratory Rate 17 06/21/2014 4:08 PM CDT Oxygen Saturation - - Inhaled Oxygen Concentration - - Weight 75.8 kg (167 lb) 10/31/2015 2:40 PM BIOPHYSICS SCIENTIST Height 152.4 cm (5') 10/31/2015 2:40 PM BIOPHYSICS SCIENTIST Body Mass Index 32.61 10/31/2015 2:40 PM BIOPHYSICS SCIENTIST Plan of Treatment Health Maintenance Due Date Last Done Comments COLOGUARD (AGES 45-75) - COL ON CA SCREENING 1968 COLON MONITORING 1968 COLONOSCOPY - COLON CA SCREENING 1968 CT COLONOGRAPHY - COLON CA SCREENING 1968 Colorectal Cancer Screening 1968 FIT - COLON CA SCREENING 1968 FLEX SIG - COLON CA SCREENING 1968 MAMMOGRAM 1968 HIV SCREENING 1983 HEPATITIS C SCREENING 10/31/1986 DTAP/TDAP/TD VACCINES (1 - Tdap) 1987 HEPATITIS B VACCINE (1 of 3 - 19+ 3-dose series) 1987 PNEUMOCOCCAL VACCINE 50+ (1 of 1 - PCV) 2018 ZOSTER VACCINE (1 of 2) 2018 LIPID TESTING 11/11/2020 11/11/2015 COVID-19 VACCINE (1 - 2023-2 5 season) 2024 DEPRESSION SCREENING 09/29/2024 INFLUENZA VACCINE (Season Ended) 2025 HIB VACCINE Aged Out No longer eligi ble based on patient's age to complete this topic HPV VACCINE Aged Out No longer eligi ble based on patient's age to complete this topic MENINGOCOCCAL (Group B) VACC INE SHARED DECISION-MAKING Aged Out No longer eligibl e based on patient's age to complete this topic MENINGOCOCCAL GROUPS A/C/Y/W VACCINE Aged Out No longer eligible b ased on patient's age to complete this topic Procedures Procedure Name Priority Date/Time Associated Diagnosis Comments LIPID PROFILE Routine 11/11/2015 10:42 AM BIOPHYSICS SCIENTIST Insulin resistance Morbid obesity, unspecified obesity type Goiter from Last 3 Months or Most Recently Relevant to Health Maintenance Results * (ABNORMAL) LIPID PROFILE (11/11/2015 10:42 AM BIOPHYSICS SCIENTIST) Cholesterol 182 100 - 199 mg/dL [facility] ACCOUNT BILL Triglycerides 53 0 - 149 mg/dL [facility] ACCOUNT BILL HDL Cholesterol 57 >39 mg/dL [facility] ACCOUNT BILL Comment: According to ATP-III Guidelines, HDL-C >59 mg/dL is considered a negative risk factor for CHD. VLDL Calculated 11 5 - 40 mg/dL [facility] ACCOUNT BILL LDL Calculated 114(H) 0 - 99 mg/dL [facility] ACCOUNT BILL Comment NOT NEEDED [facility] ACCOUNT BILL Comment:Ancillary determined the test is not needed Blood specimen (specimen) BLOOD SPECIMEN / Unknown 11/11/2015 10:42 AM BIOPHYSICS SCIENTIST 11/11/2015 1:38 PM BIOPHYSICS SCIENTIST Narrative Resulting Agency Comment [facility] 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
== END 2025-03-11 07:24 | disposition home or self-care (01) ==
LOC: ANHIMG 07:24
PROVIDERS: Visit Provider Nurse Practitioner
DX: Z78.0 Asymptomatic menopausal state (principal)
CPT/HCPCS: 77080

== ENCOUNTER 2025-09-05 14:50 | Outpatient (CLI) | payer BC, SELFPAY ==
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
== END 2025-09-05 14:51 | disposition home or self-care (01) ==
LOC: MICIMG 14:50
PROVIDERS: Visit Provider Nurse Practitioner
DX: Z12.31 Encounter for screening mammogram for malignant neoplasm of breast (principal)
CPT/HCPCS: 77063; 77067